=== PATIENT | female | born 1955 | race Caucasian/White ===

== ENCOUNTER 2020-10-15 22:04 | Emergency (ER) | payer OTHER ==
--- OUTSIDE RECORDS SUMMARY | 2020-10-15 22:07 | XMS REPORT | Continuity of Care Document ---
:1955 Author Organization [facility] t Address [address] [place] [address] Care Team Providers Name Role Phone Kacey MCCALLUM, A Primary Care Physician Ese Valdes DO Attending Clinician Problems Condition Condition Condition Status Onset Resolution Last Treating Co mments Source Name Details Category Date Date Treatment Clinician Date Angina at Angina at Disease Active Reyes [facility]ber rest rest 11-19 Methodi 00:00: st 00 Allergies, Adverse Reactions, Alerts Allergy Allergy Status Severity Reaction(s) Onset Inactive Treating Comm ents Source Name Type Date Date Clinician Aspirin Propensi Active Other (See palpitati [place] ty to Comments) 11-19 ons Methodi adverse 00:00: st reaction 00 s to drug Meperidi Propensi Active Anaphylaxis [place] ty to 11-19 Methodi adverse 00:00: st reaction 00 s to drug Family History Family Member Diagnosis Comments Start Date Stop Date Source Natural brother No Known Problems Luis Felipe Holcomb Natural mother No Known Problems Reyes Holcomb Natural sister No Known Problems Reyes Holcomb Social History Social Habit Start Date Stop Date Quantity Comments Source History of Current smoker [facility] tobacco use Tobacco use and 2018-01-09 2018-01-[address] [facility]ist exposure 00:00:00 00:00:00 Alcohol intake 2018-01-09 2018-01-09 Current [facility] 00:00:00 00:00:00 non-drinker of alcohol (finding) Sex Ass[birth year] At [birth year] T[facility] Craig ethodist 00:00:00 00:00:00 Smoking Status Start Date Stop Date Source Former smoker 2018-01-09 00:00:00 2018-01-09 00:00:00 [facility] Medications Ordered Filled Start Stop Current Ordering Indication Dosage Frequency Signature Comments Components Source Medication Medication Date Date Medication? Clinician (SIG) Name Name losartan 2017- Yes 25mg QD Take 25 mg Reyes ston (COZAAR) 25 9-07 by mouth Meth [place] MG tablet 12:03: daily. st 42 acetaminoph 2017- Yes 1{tbl} Q4H Take 1 [place] en-codeine 07 tablet by Meth [place] (TYLENOL 12:03: mouth st WITH 42 every 4 CODEINE #3) (four) 300-30 mg hours as per tablet needed for moderate pain. tiZANidine Yes 4mg Q8H Take 4 mg [place] (ZANAFLEX) 9-07 by mouth Metho di 4 MG tablet 12:03: every 8 st 42 (eight) hours as needed for muscle spasms. Procedures This patient has no known procedures. Plan of Care Planned Activity Planned Date Details Comments Source Future Scheduled 2020-11-28 INFLUENZA VACCINE [place] [facility] 00:00:00 [code = INFLUENZA VACCINE] Future Scheduled 2007-10-31 BREAST CANCER [facility] Test 00:00:00 SCREENING [code = BREAST CANCER SCREENING] Future Scheduled 2007-10-31 COLONOSCOPY SCREENING [place] [facility] Test 00:00:00 [code = COLONOSCOPY SCREENING] Future Scheduled 2007-10-31 SHINGLES VACCINES [place] [facility] 00:00:00 (#1) [code = SHINGLES VACCINES (#1)] Future Scheduled 1978 Screening for [facility] Test 00:00:00 malignant neoplasm of cervix (procedure) [code = 134698376] Future Scheduled 1975-10-31 Hepatitis C screening [place] [facility] Test 00:00:00 (procedure) [code = 620824563] Future Scheduled 1969 COVID-19 VACCINE (1) [facility] Test 00:00:00 [code = COVID-19 VACCINE (1)] Encounters Start End Encounter Admission Attending Care Care Encounter Source Date/Time Date/Time Type Type Clinicians Facility Department ID 2020-04-25 2020-04-25 Emergency Lucio [facility] [id number] 18:15:00 23:38:00 Marquita Childs [id number] [place] [id number] [place] [id number] 2019-03-30 2019-03-30 Emergency E [facility] [id number] 00:33:00 00:33:00 joyce cook Results This patient has no known results.
[2020-10-15] MEDS ORDERED: PROMETHAZINE INJ 25 MG/ML AMP ONE (23:48)
[2020-10-15] MEDS ORDERED: NA CHLORIDE 0.9% 1,000 ML ONE (23:48)
[2020-10-16] MEDS ORDERED: MORPHINE 4 MG/ML SYR ONE (00:30)
[2020-10-16 00:31] LABS: Protime INR 1.02
[2020-10-16 00:33] LABS: Absolute Lymphocytes (CBC) 2.1 K/uL (0.7-4.9); Hematocrit 41.9 % (36.0-45.0); Lymphocytes % 37.4 % (15.3-44.8); MPV 10.5 fL (7.6-11.3); RBC Red Blood Cell Count 4.59 M/uL (3.86-4.86)
[2020-10-16 00:59] LABS: ALT/SGPT 20 U/L (12-78); AST/SGOT 16 U/L (15-37); Albumin 3.6 g/dL (3.4-5.0); Alkaline Phosphatase 102 U/L (45-117); BUN Blood Urea Nitrogen 11 mg/dL (7-18); Bicarbonate 27 mmol/L (21-32); Bilirubin Direct < 0.1 mg/dL (0-0.2); Bilirubin Total 0.3 mg/dL (0.2-1.0); Glucose Level 94 mg/dL (74-106); Magnesium 2.2 mg/dL (1.8-2.4); NT PRO-BNP 24 pg/mL (<125); Potassium 3.4 mmol/L (3.5-5.1); Protein, Total 7.2 g/dL (6.4-8.2); Sodium Level 143 mmol/L (136-145); Troponin (Emerg Dept Use Only) < 0.02 ng/mL (0.0-0.045)
[2020-10-16] MEDS ORDERED: MAGNES/ALUMIN/SIMET 30ML UCUP ONE (01:45)
[2020-10-16] MEDS ORDERED: LIDOCAINE VISCOUS 2% SOLN 15 ML UDC ONE (01:45)
[2020-10-16 03:27] LABS: Urine Blood Negative (Negative); Urine Glucose Negative (Negative); Urine Protein Negative (Negative); Urine Specific Gravity <=1.005 (1.005-1.030); Urine pH 5.5 (5.0-7.0)
--- NOTE | 2020-10-16 03:51 | EDPHYS ---
Physician Documentation [facility] Name: Marya Ching Age: 64 yrs Sex: Female : 1955 Arrival Date: 10/15/2020 Time: 22:31 Bed 19 Private MD: ED Physician Stevan Burkett HPI: 10/16 00:05 This 64 yrs old Female presents to ER via Wheelchair with complaints of mh7 Dizziness. 00:05 The patient presents with dizziness. Onset: The symptoms/episode began/occurred today. mh7 Onset: The symptoms/episode began/occurred this morning. Context: occurred at home, occurred while the patient was sitting, just prior to the episode the patient experienced no apparent symptoms. Modifying factors: The symptoms are alleviated by nothing, the symptoms are aggravated by standing up, changing position. Associated signs and symptoms: Pertinent positives: chest pain, headache, Pertinent negatives: abdominal pain, agitation, ataxia, blurred vision, combativeness, confusion, diaphoresis, focal weakness, head injury, nausea, near-syncope, numbness, palpitations, , seizure, shortness of breath, syncope, tingling, vomiting. Severity of symptoms: At their worst the symptoms were moderate today, in the emergency department the symptoms are unchanged. Patient's baseline: Neuro: alert and fully oriented, Motor: no deficits, Ambulation: walks without assistance, Speech: normal. Historical: - Allergies: 10/15 22:44 Phenobarbital; bb 22:44 Aspirin; bb 22:44 Charadona; bb - PMHx: 22:44 COPD; ascending aortic anuerysm; diverticulosis; colon surgery; bb - PSHx: 22:44 cervical fusion; Hysterectomy; bb - Immunization history:: Adult Immunizations up to date, Client reports receiving the 2nd dose of the Covid vaccine. - Social history:: Smoking status: unknown. ROS: 10/16 00:05 Constitutional: Negative for fever, chills, and weight loss, Eyes: Negative for injury, mh7 pain, redness, and discharge. Neck: Negative for injury, pain, and swelling, Respiratory: Negative for shortness of breath, cough, wheezing, and pleuritic chest pain, Abdomen/GI: Negative for abdominal pain, nausea, vomiting, diarrhea, and constipation, Back: Negative for injury and pain, : Negative for injury, bleeding, discharge, and swelling, MS/Extremity: Negative for injury and deformity, Skin: Negative for injury, rash, and discoloration, Psych: Negative for depression, anxiety, suicide ideation, homicidal ideation, and hallucinations, Allergy/Immunology: Negative for hives, rash, and allergies, Endocrine: Negative for neck swelling, polydipsia, polyuria, polyphagia, and marked weight changes, Hematologic/Lymphatic: Negative for swollen nodes, abnormal bleeding, and unusual bruising. ENT: Positive for sinus pain. Exam: 00:05 Constitutional: This is a well developed, well nourished patient who is awake, alert, mh7 and in no acute distress. 00:05 Eyes: Pupils equal round and reactive to light, extra-ocular motions intact. Lids and lashes normal. Conjunctiva and sclera are non-icteric and not injected. Cornea within normal limits. Periorbital areas with no swelling, redness, or edema. ENT: Nares patent. No nasal discharge, no septal abnormalities noted. Tympanic membranes are normal and external auditory canals are clear. Oropharynx with no redness, swelling, or masses, exudates, or evidence of obstruction, uvula midline. Mucous membranes moist. Neck: Trachea midline, no thyromegaly or masses palpated, and no cervical lymphadenopathy. Supple, full range of motion without nuchal rigidity, or vertebral point tenderness. No Meningismus. Chest/axilla: Normal chest wall appearance and motion. Nontender with no deformity. No lesions are appreciated. Respiratory: Lungs have equal breath sounds bilaterally, clear to auscultation and percussion. No rales, rhonchi or wheezes noted. No increased work of breathing, no retractions or nasal flaring. Abdomen/GI: Soft, non-tender, with normal bowel sounds. No distension or tympany. No guarding or rebound. No evidence of tenderness throughout. Back: No spinal tenderness. No costovertebral tenderness. Full range of motion. Skin: Warm, dry with normal turgor. Normal color with no rashes, no lesions, and no evidence of cellulitis. MS/ Extremity: Pulses equal, no cyanosis. Neurovascular intact. Full, normal range of motion. Neuro: Awake and alert, GCS 15, oriented to person, place, time, and situation. Cranial nerves II-XII grossly intact. Motor strength 5/5 in all extremities. Sensory grossly intact. Cerebellar exam normal. Normal gait. Psych: Awake, alert, with orientation to person, place and time. Behavior, mood, and affect are within normal limits. 00:05 Cardiovascular: Regular rate and rhythm with a normal S1 and S2. No gallops, murmurs, or rubs. Normal PMI, no JVD. No pulse deficits. 00:05 Head/face: Sinus tenderness, that is moderate, is located over the right frontal sinus and left frontal sinus. Vital Signs: 10/15 22:38 BP 116 / 72; Pulse 77; Resp 16 S; Temp 97.5(TE); Pulse Ox 97% on R/A; Weight 92.08 kg bb (R); Height 5 ft. 4 in. (162.56 cm) (R); Pain 5/10; 23:50 BP 118 / 65 Supine; Pulse 68; Resp 16; Pulse Ox 98% ; rr5 23:54 BP 134 / 75 Sitting; Pulse 79; Resp 18; Pulse Ox 97% ; rr5 23:57 BP 140 / 73; Pulse 85; Resp 17; Pulse Ox 97% ; rr5 0619 01:20 BP 146 / 95; Pulse 89; Resp 15; Pulse Ox 98% ; rr5 02:23 BP 133 / 75; Pulse 80; Resp 17; Pulse Ox 98% ; rr5 03:10 BP 124 / 74; Pulse 75; Resp 17; Pulse Ox 96% ; rr5 04:00 BP 136 / 89; Pulse 86; Resp 17; Pulse Ox 98% ; rr5 10/15 22:38 Body Mass Index 34.84 (92.08 kg, 162.56 cm) MDM: 03:48 Differential diagnosis: cardiac arrhythmia, CVA, hypovolemia, idiopathic dizziness, mh7 near-syncope, syncope, TIA, vertigo. Data reviewed: vital signs, nurses notes, EMS record, lab test result(s), cardiac enzymes, CBC, electrolytes, urinalysis, EKG, radiologic studies, CT scan, plain films. Data interpreted: Pulse oximetry: on room air is 98 %. Interpretation: normal. Counseling: I had a detailed discussion with the patient and/or guardian regarding: the historical points, exam findings, and any diagnostic results supporting the discharge/admit diagnosis, lab results, radiology results. Counseling: I had a detailed discussion with the patient and/or guardian regarding: the need for further work-up and treatment in the hospital. Response to treatment: the patient's symptoms have mildly improved after treatment. 03:50 Patient medically screened. [facility] 10/15 23:21 Order name: Basic Metabolic Panel [facility] 10/15 23:21 Order name: CBC with Diff; Complete Time: 01:09 [facility] 10/15 23:21 Order name: LFT's; Complete Time: 01:09 [facility] 10/15 23:21 Order name: Magnesium; Complete Time: 01: [facility] 10/15 23:21 Order name: NT PRO-BNP; Complete Time: 01:09 [facility] 10/15 23:21 Order name: PT-INR; Complete Time: 01: [facility] 10/15 23:21 Order name: Troponin (emerg Dept Use Only); Complete Time: 01:09 [facility] 10/15 23:21 Order name: XRAY Chest (1 view) [facility] 10/15 23:22 Order name: CT Head Brain wo Cont [facility] 10/15 23:22 Order name: Basic Metabolic Panel; Complete Time: 01:09 [facility] 10/16 01:23 Order name: CT Chest For PE Angio [facility] 10/16 01:23 Order name: CT Abd/Pelvis - IV Contrast Only [facility] 10/16 03:27 Order name: Urine Dipstick-Ancillary; Complete Time: 03:29 [facility] 10/15 23:21 Order name: EKG; Complete Time: 23:22 [facility] 10/15 23:21 Order name: Cardiac monitoring; Complete Time: 00:15 [facility] 10/15 23:21 Order name: EKG - Nurse/Tech; Complete Time: 00:15 [facility] 10/15 23:22 Order name: IV Saline Lock; Complete Time: 00:15 [facility] 10/15 23:22 Order name: Labs collected and sent; Complete Time: 00:15 [facility] 10/15 23:22 Order name: O2 Per Protocol; Complete Time: 00:15 [facility] 10/15 23:22 Order name: O2 Sat Monitoring; Complete Time: 00:15 [facility] 10/15 23:22 Order name: Orthostatics; Complete Time: 00:15 7 Administered Medications: 00:10 Drug: NS 0.9% 1000 ml Route: IV; Rate: 1000 ml; Site: right forearm; rr5 01:15 Follow up: Response: No adverse reaction; IV Status: Completed infusion; IV Intake: rr5 1000ml 00:14 Drug: morphine 4 mg {Note: rass 0.} Route: IVP; Site: right forearm; rr5 00:15 Follow up: Response: No adverse reaction; RASS: Alert and Calm (0) rr5 00:15 Drug: Phenergan (promethazine) 12.5 mg Route: IVP; Site: right forearm; rr5 00:15 Follow up: Response: No adverse reaction rr5 01:31 Drug: GI Cocktail without - (Maalox Suspension 30 ml, Lidocaine Liquid 2 % 15 rr5 ml) Route: PO; 02:30 Follow up: Response: No adverse reaction rr5 Disposition: 10/16/20 03:50 Patient has left against medical advice. Impression: Dizziness and giddiness, Chest pain, unspecified. - Patients states they are going to Home. - Condition is Stable. - Discharge Instructions: Dizziness, Nonspecific Chest Pain, [id number]. Follow up: Private Physician; When: 1 - 2 days; Reason: Worsening of condition, Recheck today's complaints, Continuance of care, Re-evaluation by your physician. Follow up: Juanito Blanc MD; When: 1 - 2 days; Reason: Worsening of condition, Recheck today's complaints. - Problem is new. - Symptoms have improved. Signatures: Dispatcher [employer] EDMS Staci Dinero RN RN bb Ezio Cohen RN RN rr5 Stevan Burkett MD MD 7 Corrections: (The following items were deleted from the chart) 04:20 03:50 10/16/2020 03:50 Patients has left against medical advice. Impression: Dizziness rr5 and giddiness; Chest pain, unspecified. Patient states they are going to Home. Condition is Stable. Follow up: Private Physician; When: 1 - 2 days; Reason: Worsening of condition, Recheck today's complaints, Continuance of care, Re-evaluation by your physician. Follow up: Juanito Blanc; When: 1 - 2 days; Reason: Worsening of condition, Recheck today's complaints. Problem is new. Symptoms have improved. 7
--- NOTE | 2020-10-16 03:51 | ER ---
Nurse's Notes [facility] Name: Marya Ching Age: 64 yrs Sex: Female : 1955 Arrival Date: 10/15/2020 Time: 22:31 Bed 19 Private MD: Diagnosis: Dizziness and giddiness;Chest pain, unspecified Presentation: 10/15 22:38 Chief complaint: Patient states: she has been feeling dizzy for a couple of days but bb the symptoms worsened tonight and she is unable to walk she has also had a headache. Coronavirus screen: At this time, the client does not indicate any symptoms associated with coronavirus-19. Ebola Screen: No symptoms or risks identified at this time. Initial Sepsis Screen: Does the patient meet any 2 criteria? No. Patient's initial sepsis screen is negative. Does the patient have a suspected source of infection? No. Patient's initial sepsis screen is negative. Risk Assessment: Do you want to hurt yourself or someone else? Patient reports no desire to harm self or others. Onset of symptoms was October 13, 2020. 22:38 Method Of Arrival: Wheelchair bb 22:38 Acuity: BERNARDO 3 bb Historical: - Allergies: 22:44 Phenobarbital; bb 22:44 Aspirin; bb 22:44 Charadona; bb - PMHx: 22:44 COPD; ascending aortic anuerysm; diverticulosis; colon surgery; bb - PSHx: 22:44 cervical fusion; Hysterectomy; bb - Immunization history:: Adult Immunizations up to date, Client reports receiving the 2nd dose of the Covid vaccine. - Social history:: Smoking status: unknown. Screenin:30 Abuse screen: Denies threats or abuse. Denies injuries from another. Nutritional rr5 screening: No deficits noted. Tuberculosis screening: No symptoms or risk factors identified. Fall Risk IV access (20 points). Total Tompkins Fall Scale indicates No Risk (0-24 pts). Assessment: 23:00 General: Appears in no apparent distress. uncomfortable, Behavior is calm, cooperative, rr5 appropriate for age. Pain: Complains of pain in left frontal sinus and right frontal sinus. Neuro: Level of Consciousness is awake, alert, obeys commands, Oriented to person, place, time, Reports dizziness, headache. 23:00 Cardiovascular: Capillary refill < 3 seconds Patient's skin is warm and dry. rr5 Respiratory: Airway is patent Respiratory effort is even, unlabored, Respiratory pattern is regular, symmetrical. GI: No signs and/or symptoms were reported involving the gastrointestinal system. : No signs and/or symptoms were reported regarding the genitourinary system. EENT: No signs and/or symptoms were reported regarding the EENT system. Derm: Skin is intact, is healthy with good turgor, Skin temperature is warm. Musculoskeletal: Capillary refill < 3 seconds. 10/16 00:16 Reassessment: Patient appears in no apparent distress at this time. refused for covid rr5 test. 00:30 Reassessment: Patient appears in no apparent distress at this time. complaints of rr5 chest/ abdominal pain started just now, ED provider aware with order made and carriedout. 02:20 Reassessment: Patient appears in no apparent distress at this time. Patient is alert, rr5 oriented x 3, equal unlabored respirations, skin warm/dry/pink. back form CTscan. 04:00 Reassessment: Patient appears in no apparent distress at this time. Patient is alert, rr5 oriented x 3, equal unlabored respirations, skin warm/dry/pink. reassess by ED provider advised for admission but opted to go home, AMA for signed, discharge instruction given and explained without complaints made. Vital Signs: 10/15 22:38 BP 116 / 72; Pulse 77; Resp 16 S; Temp 97.5(TE); Pulse Ox 97% on R/A; Weight 92.08 kg bb (R); Height 5 ft. 4 in. (162.56 cm) (R); Pain 5/10; 23:50 BP 118 / 65 Supine; Pulse 68; Resp 16; Pulse Ox 98% ; rr5 23:54 BP 134 / 75 Sitting; Pulse 79; Resp 18; Pulse Ox 97% ; rr5 23:57 BP 140 / 73; Pulse 85; Resp 17; Pulse Ox 97% ; rr5 10/16 01:20 BP 146 / 95; Pulse 89; Resp 15; Pulse Ox 98% ; rr5 02:23 BP 133 / 75; Pulse 80; Resp 17; Pulse Ox 98% ; rr5 03:10 BP 124 / 74; Pulse 75; Resp 17; Pulse Ox 96% ; rr5 04:00 BP 136 / 89; Pulse 86; Resp 17; Pulse Ox 98% ; rr5 10/15 22:38 Body Mass Index 34.84 (92.08 kg, 162.56 cm) bb ED Course: 10/15 22:31 Patient arrived in ED. am4 22:41 Triage completed. bb 22:44 Arm band placed on Patient placed in an exam room, on a stretcher, on pulse oximetry. bb Family accompanied patient. 22:55 Stevan Burkett MD is Attending Physician. [facility] 22:59 Ezio Cohen RN is Primary Nurse. rr5 23:30 Patient has correct armband on for positive identification. Bed in low position. Call rr5 light in reach. Side rails up X2. property assessment monitor on. Pulse ox on. NIBP on. 23:51 XRAY Chest (1 view) In Process Unspecified. EDMS 23:59 CT Head Brain wo Cont In Process Unspecified. EDMS 10/16 00:00 Inserted saline lock: 20 gauge in right forearm, using aseptic technique. Blood rr5 collected. 02:15 Inserted saline lock: 20 gauge in left antecubital area, using aseptic technique. rr5 02:22 CT Chest For PE Angio In Process Unspecified. EDMS 02:22 CT Abd/Pelvis - IV Contrast Only In Process Unspecified. EDMS 03:49 Juanito Blanc MD is Referral Physician. [facility] 04:18 No provider procedures requiring assistance completed. IV discontinued, intact, rr5 bleeding controlled, No redness/swelling at site. Pressure dressing applied. Administered Medications: 00:10 Drug: NS 0.9% 1000 ml Route: IV; Rate: 1000 ml; Site: right forearm; rr5 01:15 Follow up: Response: No adverse reaction; IV Status: Completed infusion; IV Intake: rr5 1000ml 00:14 Drug: morphine 4 mg {Note: rass 0.} Route: IVP; Site: right forearm; rr5 00:15 Follow up: Response: No adverse reaction; RASS: Alert and Calm (0) rr5 00:15 Drug: Phenergan (promethazine) 12.5 mg Route: IVP; Site: right forearm; rr5 00:15 Follow up: Response: No adverse reaction rr5 01:31 Drug: GI Cocktail without - (Maalox Suspension 30 ml, Lidocaine Liquid 2 % 15 rr5 ml) Route: PO; 02:30 Follow up: Response: No adverse reaction rr5 Intake: 01:15 IV: 1000ml; Total: 1000ml. rr5 Outcome: 04:18 AMA AMA form signed rr5 04:18 Condition: stable 04:18 Discharge instructions given to patient, family, Instructed on discharge instructions, follow up and referral plans. Demonstrated understanding of instructions, follow-up care. 04:20 Patient left the ED. rr5 Signatures: Dispatcher [employer] EDStaci St RN RN Ezio Weinberg RN RN rr5 Stevan Burkett MD MD 7 Kerri Florez am4
[2020-10-16 04:30] VITALS: TEMP 97.5
[2020-10-16 04:41] VITALS: BP 136/89; O2SAT 98
--- NOTE | 2020-10-16 09:44 | EKG ---
Test Date: 2020-10-15 Test Time: 23:36:51 Real Estate Agent/Broker: RR MEASUREMENT RESULTS: Intervals: Rate: 71 NE: 150 QRSD: 138 QT: 444 QTc: 482 [place]: P: 44 NE: 150 QRS: -39 T: 36 INTERPRETIVE STATEMENTS: Normal sinus rhythm Left axis deviation Right bundle branch block Voltage criteria for left ventricular hypertrophy Abnormal ECG No previous ECG available for comparison Electronically Signed On 10-16-20 09:43:31 CDT by Juanito Blanc
--- NOTE | 2020-10-17 20:45 | RAD REPORT ---
EXAM DESCRIPTION: Jose Single View10/15/2020 11:51 pm CLINICAL HISTORY: The patient is 64 years old and is Female; dizziness TECHNIQUE: Frontal view of the chest. COMPARISON: No relevant prior studies available. FINDINGS: Lungs: Unremarkable. No consolidation. Pleural space: Unremarkable. No pneumothorax. Heart: Unremarkable. Mediastinum: Unremarkable. Bones/joints: Unremarkable. IMPRESSION: No acute findings in the chest. Electronically signed by: José Miguel Orellana MD 10/16/2020 1:26 AM CDT Due to temporary technical issues with the PACS/Fluency reporting system, reports are being signed by the in house radiologists without review as a courtesy to insure prompt reporting. The interpreting radiologist is fully responsible for the content of the report.
--- NOTE | 2020-10-17 21:57 | RAD REPORT ---
EXAM DESCRIPTION: CT - Abdomen Pelvis W Contrast - 10/16/2020 6:21 am CLINICAL HISTORY: The patient is 64 years old and is Female; ABD PAIN TECHNIQUE: Axial computed tomography images of the abdomen and pelvis with intravenous contrast. S agittal and coronal reformatted images were created and reviewed. This CT exam was performed using one or more of the following dose reduction techniques: automated exposure control, adjustment of t he mA and/or kV according to patient size, and/or use of iterative reconstruction technique. COMPARISON: No relevant prior studies available. FINDINGS: Lung bases: Unremarkable. No mass. No consolidation. Mediastinum: Small hiatal hernia. ABDOMEN: Liver: Unremarkable. No mass. Gallbladder and bile ducts: Unremarkable. No calcified stones. No ductal dilation. Pancreas: Unremarkable. No mass. No ductal dilation. Spleen: Unremarkable. No splenomegaly. Adrenals: Unremarkable. No mass. Kidneys and ureters: Unremarkable. No solid mass. No hydronephrosis. Stomach and bowel: Unremarkable. No obstruction. No mucosal thickening. PELVIS: Appendix: No findings to suggest acute appendicitis. Bladder: Unremarkable. No mass. Reproductive: Uterus is not seen. ABDOMEN and PELVIS: Intraperitoneal space: Unremarkable. No free air. No significant fluid collection. Bones/joints: No acute fracture. No dislocation. Soft tissues: Unremarkable. Vasculature: Scattered atherosclerotic vascular calcifications. No abdominal aortic aneurysm. Lymph nodes: Unremarkable. No enlarged lymph nodes. IMPRESSION: No acute findings in the abdomen or pelvis. Electronically signed by: José Miguel Orellana MD 10/16/2020 2:55 AM CDT Due to temporary technical issues with the PACS/Fluency reporting system, reports are being signed by the in house radiologists without review as a courtesy to insure prompt reporting. The interpreting radiologist is fully responsible for the content of the report.
--- NOTE | 2020-10-17 22:00 | RAD REPORT ---
EXAM DESCRIPTION: CT - Head Brain Wo Cont - 10/16/2020 6:24 am CLINICAL HISTORY: The patient is 64 years old and is Female; Dizziness;Headache TECHNIQUE: Axial computed tomography images of the head/brain without intravenous contrast. Sagitt al and coronal reformatted images were created and reviewed. This CT exam was performed using one o r more of the following dose reduction techniques: automated exposure control, adjustment of the mA and/or kV according to patient size, and/or use of iterative reconstruction technique. COMPARISON: No relevant prior studies available. FINDINGS: Brain: Unremarkable. No hemorrhage. No significant white matter disease. No edema. Ventricles: Unremarkable. No ventriculomegaly. Bones/joints: Unremarkable. No acute fracture. Soft tissues: Unremarkable. Sinuses: Unremarkable as visualized. Mastoid air cells: Unremarkable as visualized. No mastoid effusion. IMPRESSION: No acute intracranial abnormality. Electronically signed by: José Miguel Orellana MD 10/16/2020 12:18 AM CDT Due to temporary technical issues with the PACS/Fluency reporting system, reports are being signed by the in house radiologists without review as a courtesy to insure prompt reporting. The interpreting radiologist is fully responsible for the content of the report.
--- NOTE | 2020-10-17 22:02 | RAD REPORT ---
EXAM DESCRIPTION: CT - Chest For Pe Angio - 10/16/2020 6:20 am CLINICAL HISTORY: CHEST PAIN TECHNIQUE: Contiguous axial images obtained through the chest during angiographic phase following th e uneventful administration of IV contrast. Sagittal and coronal reformatted images were provided. VT P reformatted images were provided. This exam was performed according to our departmental dose-optimization program, which includes autom ated exposure control, adjustment of the mA and/or kV according to patient size and/or use of iterati ve reconstruction technique. COMPARISON: No prior exams provided for comparison. FINDINGS: Diagnostic quality: There is good opacification of the pulmonary arterial tree. Motion art ifact degrades image quality and limits evaluation of segmental and subsegmental vessels. Lungs: Mild emphysema with an upper lobe predominance. Dependent bilateral upper and lower lobe groun dglass opacities. Left lower lobe and lingular subsegmental atelectasis/pleural parenchymal scar. 5 m m right middle lobe. Fissural nodule (series 401 image 52 and series 405 image 32). 6 mm right lower lobe nodule (series 401 image 116). Airways are patent. Pleura: No effusion. No pneumothorax. Heart and pericardium: The heart is mildly enlarged. No pericardial effusion. Mediastinum and michi: No pathologically enlarged lymph nodes. Small hiatal hernia. Lower neck and chest wall: Surgical clips in the anterior lower neck, some surrounding the right lobe of the thyroid. Vessels: No pulmonary arterial filling defects. Moderate atherosclerotic disease. No thoracic aortic aneurysm. Upper abdomen: Unremarkable Bones: Mild multilevel spondylosis. No acute fracture. IMPRESSION: 1. Motion artifact degrades image quality and limits evaluation of segmental and subsegmental vesse ls. No central pulmonary embolic disease. 2. Dependent bilateral upper and lower lobe groundglass opacities (atelectasis and/or infiltrate). 3. Multiple pulmonary nodules. Most severe: 6.0 mm solid pulmonary nodule. Recommend a non-contrast Chest CT at 6-12 months, then another non-contrast Chest CT at 18-24 months. These guidelines do not apply to immunocompromised patients and patients with cancer. Follow up in patients with significant comorbidities as clinically warranted. For lung cancer screening, adhere to Lung-RADS guidelines. Richa chacon: Radiology. 2017; 284(1):228-43. 4. Other findings as above. Electronically signed by: Lorena Brennan MD 10/16/2020 3:04 AM CDT Due to temporary technical issues with the PACS/Fluency reporting system, reports are being signed by the in house radiologists without review as a courtesy to insure prompt reporting. The interpreting radiologist is fully responsible for the content of the report.
== END 2020-10-16 04:20 | disposition left against medical advice (07) ==
LOC: ER 22:04
DX: R07.9 Chest pain, unspecified (principal); J44.9 Chronic obstructive pulmonary disease, unspecified; Z88.5 Allergy status to narcotic agent; Z88.8 Allergy status to other drugs, medicaments and biological substances
CPT/HCPCS: 93005; 85025; 80048; 36415; 83735; 85610; 80076; 81003; 84484; 83880; 70450; 71275; 74177; 71045; Q9967; J2550; J7030; 96361; 96374; 96375; 99284

== ENCOUNTER 2020-10-25 19:24 | Inpatient (IN) | payer OTHER ==
--- OUTSIDE RECORDS SUMMARY | 2020-10-25 19:28 | XMS REPORT | Continuity of Care Document ---
:1955 Author Organization [facility] t Address [address] [place] [address] Care Team Providers Name Role Phone Kacey [...] Clinician Aspirin Propensi Active Other (See palpitati [place] ty to Comments) 11-19 ons Methodi adverse [...] Quantity Comments Source History of Current smoker [facility] thodist tobacco use Tobacco use and 2018-01-09 2018-01-09 Never used [facility]ist exposure 00:00:00 00:00:00 Alcohol intake 2018-01-09 2018-01-09 Current [facility] thodist 00:00:00 00:00:00 non-drinker of alcohol (finding) Sex Ass[birth year] At [birth year] Torey Criag ethodist 00:00:00 00:00:00 Smoking Status Start Date [...] Future Scheduled 2020-11-28 INFLUENZA VACCINE [place] [facility] 00:00:00 [code = INFLUENZA VACCINE] Future Scheduled 2007-10-31 BREAST CANCER [facility] Test 00:00:00 SCREENING [code = BREAST CANCER SCREENING] Future Scheduled 2007-10-31 COLONOSCOPY SCREENING [place] [facility] 00:00:00 [code = COLONOSCOPY SCREENING] Future Scheduled 2007-10-31 SHINGLES VACCINES [place] [facility] 00:00:00 (#1) [code = SHINGLES VACCINES (#1)] Future Scheduled 1978 Screening for [facility] Test 00:00:00 malignant neoplasm of cervix (procedure) [code = 990343135] Future Scheduled 1975-10-31 Hepatitis C screening [place] [facility] 00:00:00 (procedure) [code = 216615145] Future Scheduled 1969 COVID-19 VACCINE (1) [facility] 00:00:00 [code = COVID-19 VACCINE (1)] Encounters Start End Encounter Admission Attending Care Care Encounter Source Date/Time Date/Time Type Type Clinicians Facility Department ID 2020-04-25 2020-04-25 Emergency Lucio [facility] [id number] 18:15:00 23:38:00 Marquita Childs [id number] [place] [id number] [place] [id number] 2019-03-30 2019-03-30 Emergency [facility] [id number] 00:33:00 00:33:00 joyce cook Results This patient has no known results.
[2020-10-25] MEDS ORDERED: NA CHLORIDE 0.9% 1,000 ML ONE ×2 (21:47→21:48)
[2020-10-25 22:55] LABS: ALT/SGPT 24 U/L (12-78); AST/SGOT 20 U/L (15-37); Albumin 3.7 g/dL (3.4-5.0); Alkaline Phosphatase 100 U/L (45-117); BUN Blood Urea Nitrogen 13 mg/dL (7-18); Bicarbonate 28 mmol/L (21-32); Bilirubin Direct < 0.1 mg/dL (0-0.2); Bilirubin Total 0.3 mg/dL (0.2-1.0); Glucose Level 84 mg/dL (74-106); Magnesium 2.2 mg/dL (1.8-2.4); NT PRO-BNP 24 pg/mL (<125); Potassium 4.1 mmol/L (3.5-5.1); Protein, Total 6.9 g/dL (6.4-8.2); Sodium Level 142 mmol/L (136-145); Troponin (Emerg Dept Use Only) < 0.02 ng/mL (0.0-0.045)
[2020-10-25 23:00] LABS: Absolute Lymphocytes (CBC) 2.2 K/uL (0.7-4.9); Hematocrit 40.6 % (36.0-45.0); Lymphocytes % 33.6 % (15.3-44.8); MPV 10.5 fL (7.6-11.3); RBC Red Blood Cell Count 4.48 M/uL (3.86-4.86)
[2020-10-25] MEDS ORDERED: MORPHINE 4 MG/ML SYR ONE (23:32)
[2020-10-25] MEDS ORDERED: ONDANSETRON 4 MG/2 ML VIAL ONE (23:32)
--- NOTE | 2020-10-25 23:58 | ER ---
Nurse's Notes [facility] Name: Marya Ching Age: 64 yrs Sex: Female : 1955 Arrival Date: 10/25/2020 Time: 20:08 Bed 5 Private MD: Diagnosis: Dizziness. Ataxia. Slurred speech Presentation: 10/25 20:19 Chief complaint: Patient states: Dr. Gann sent over pt to possibly be admitted due to em worsening symptoms of ataxia, symptoms have been there for about 1.5 weeks, also reports neck pain that started a few ago as well, denies N/V. Coronavirus screen: Client denies travel out of the [place] in the last 14 days. Ebola Screen: Patient negative for fever greater than or equal to 101.5 degrees Fahrenheit, and additional compatible Ebola Virus Disease symptoms Patient denies exposure to infectious person. Patient denies travel to an Ebola-affected area in the 21 days before illness onset. No symptoms or risks identified at this time. Initial Sepsis Screen: Does the patient meet any 2 criteria? No. Patient's initial sepsis screen is negative. Does the patient have a suspected source of infection? No. Patient's initial sepsis screen is negative. Risk Assessment: Do you want to hurt yourself or someone else? Patient reports no desire to harm self or others. Onset of symptoms was October 25, 2020. 20:19 Method Of Arrival: Wheelchair em 20:19 Acuity: BERNARDO 3 em Historical: - Allergies: 20:22 Aspirin; em 20:22 Charadona; em 20:22 Phenobarbital; em - PMHx: 20:22 ascending aortic anuerysm; colon surgery; COPD; diverticulosis; em - PSHx: 20:22 cervical fusion; Hysterectomy; em - Immunization history:: Adult Immunizations Client reports receiving the 2nd dose of the Covid vaccine. - Social history:: Smoking status: Patient denies any tobacco usage or history of. Screenin:45 Abuse screen: Denies threats or abuse. Nutritional screening: No deficits noted. ea Tuberculosis screening: No symptoms or risk factors identified. Fall Risk None identified. Assessment: 21:45 General: Appears in no apparent distress. Behavior is calm, cooperative, appropriate ea for age. Pain: Complains of pain in back. Neuro: Level of Consciousness is awake, alert, obeys commands, Oriented to person, place, time. Cardiovascular: Patient's skin is warm and dry. Respiratory: Airway is patent Respiratory effort is even, unlabored, Respiratory pattern is regular, symmetrical. Derm: Skin is pink, warm \T\ dry. 22:16 Reassessment: Patient appears in no apparent distress at this time. Patient and/or ad5 family updated on plan of care and expected duration. Pain level reassessed. Pt noted to be hard stick, RN x 2 attempt. 22g diffusix est to L forearm, serum labs drawn and sent to lab. Flushes without difficulty. 23:09 Reassessment: Pt reports continued headache, provider aware. Awaiting further orders. ad5 Pt repositioned for comfort in stretcher. Bed low and locked, bedrails x 2, call light within reach. Will continue to monitor. 10/26 00:19 Reassessment: Patient appears in no apparent distress at this time. No changes from ad5 previously documented assessment. Patient and/or family updated on plan of care and expected duration. Pain level reassessed. Vital Signs: 10/25 20:19 BP 131 / 74; Pulse 87; Resp 16; Temp 97.8; Pulse Ox 99% on R/A; Weight 92.53 kg; Height em 5 ft. 4 in. (162.56 cm); Pain 6/10; 23:09 BP 133 / 82; Pulse 81; Resp 18 S; Pulse Ox 95% ; ad5 10/26 00:19 BP 142 / 73; Pulse 73; Resp 18 S; Pulse Ox 96% on R/A; ad5 10/25 20:19 Body Mass Index 35.02 (92.53 kg, 162.56 cm) em ED Course: 10/25 20:08 Patient arrived in ED. cf2 20:22 Triage completed. em 20:22 Arm band placed on. em 20:48 Juan Cabrera is Primary Nurse. ad5 20:57 Og Lewis MD is Attending Physician. pkl 21:23 NT PRO-BNP Sent. pkl 21:45 Patient has correct armband on for positive identification. Bed in low position. Call ea light in reach. Side rails up X2. 21:48 XRAY Chest (1 view) In Process Unspecified. EDMS 22:24 CT Head C Spine In Process Unspecified. EDMS 23:57 Percy Acosta MD is Hospitalizing Provider. pkl 10/26 00:20 No provider procedures requiring assistance completed. Patient admitted, IV remains in ea place. Administered Medications: 10/25 22:39 Drug: NS 0.9% 1000 ml Route: IV; Rate: 100 ml/hr; Site: right forearm; ea 23:16 Drug: Zofran (Ondansetron) 4 mg Route: IVP; Site: left forearm; ad5 23:51 Follow up: Response: No adverse reaction ad5 23:17 Drug: morphine 4 mg {Note: RASS 0.} Route: IVP; Site: left forearm; ad5 23:51 Follow up: Response: No adverse reaction; RASS: Alert and Calm (0) ad5 Outcome: 23:58 Decision to Hospitalize by Provider. pk 10/26 00:19 Instructed on the need for admit, Demonstrated understanding of instructions. ea 00:34 Admitted to Med/surg accompanied by nurse, via wheelchair, with chart. ea 00:34 Condition: stable 00:34 Patient left the ED. ea Signatures: Dispatcher [employer] Og Motley MD MD pkNakul Silvestre, RN RN Evon Allen RN RN Da Edgar cfJuan Ramirez ad5
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
[2020-10-26] MEDS ORDERED: ONDANSETRON 4 MG/2 ML VIAL IV PRN (01:55)
[2020-10-26 03:34] VITALS: BMI 35.0
--- NOTE | 2020-10-26 04:45 | P.HP ---
Certification for Inpatient Patient admitted to: Observation With expected LOS: <2 Midnights Patient will require the following post-hospital care: None Practitioner: I am a practitioner with admitting privileges, knowledge of patient current condition, hospital course, and medical plan of care. Services: Services provided to patient in accordance with Admission requirements found in Title 42 Section 412.3 of the Code of Federal Regulations <Hood Coronel - Last Filed: 10/26/20 04:39> Patient History Date of Service: 10/26/20 Primary Care Provider: Celia Reason for admission: ataxia History of Present Illness: Ms. Ching is a 64 yo F with COPD here today for 1.5 weeks of ataxic gait and dizziness with ambulation. She says today she started to take a few steps, became very dizzy, and almost fell. She said a few days ago, her son told her that her speech was slurred. She says she has to focus to enunciate her words. She reports blurry vision. Denies nausea, vomiting, falls, and sensory disturbances. - Past Medical/Surgical History Has patient received pneumonia vaccine in the past: No Diabetic: No -: ASCENDING AORTIC ANEURYSM -: COPD -: DIVERTICULOSIS -: HYPERPARATHYROIDISM-RESOLVED THRU SX -: CONSTIPATION -: COLON SX -: HYSTERECTOMY -: CERVICAL FUSION -: PARATHYROID SX - Family History Parents Notes: no medical condition per pt Mother -: Lung disease Notes: mother of COVID pneumonia - Social History Smoking Status: Former smoker Alcohol use: No CD- Drugs: No Caffeine use: No Place of Residence: Home <Hood Coronel - Last Filed: 10/26/20 04:39> Date of Service: 10/26/20 <Percy Acosta - Last Filed: 11/01/20 04:52> Allergies aspirin Allergy (Verified 10/26/20 01:58) palpitations phenobarbital Allergy (Verified 10/26/20 01:28) unknown meperidine [From Demerol] Adverse Reaction (Verified 10/26/20 01:58) severe hypotension; coded charadona Allergy (Uncoded 10/26/20 01:57) unknown Home Medications: Albuterol 1 aero IH SEECOM PRN 10/26/20 Docusate [Colace Cap*] 1 cap PO DAILYPRN PRN 10/26/20 Fluticasone/Umeclidin/Vilanter [Trelegy Ellipta 100-62.5-25] 1 puff IH DAILY 10/26/20 Atorvastatin Calcium [Lipitor*] 10 mg PO BEDTIME #30 tab 10/29/20 Baclofen [Lioresal*] 10 mg PO DAILY #30 tab 10/29/20 Cyanocobalamin/Cobamamide [Vitamin B-12 5,000 Mcg Tab Sl] 1 each SL DAILY #30 tab.subl 10/29/20 Docusate [Colace Cap*] 100 mg PO BID #30 cap 10/29/20 Topiramate [Topamax*] 25 mg PO BID #60 tab 10/29/20 predniSONE [Prednisone*] 20 mg PO DAILY #10 tab 10/29/20 Review of Systems 10-point ROS is otherwise unremarkable Neurological: Incoordination, Change in Speech, As per HPI <Hood Coronel S - Last Filed: 10/26/20 04:39> Physical Examination - Vital Signs Temperature: 97.8 F Blood Pressure: 142/73 Pulse: 73 Respirations: 18 - Physical Exam General: Alert, In no apparent distress HEENT: Atraumatic, PERRLA, Mucous membr. moist/pink, EOMI, Sclerae nonicteric Neck: Supple, 2+ carotid pulse no bruit, No LAD, Without JVD or thyroid abnormality Respiratory: Clear to auscultation bilaterally, Normal air movement Cardiovascular: Regular rate/rhythm, Normal S1 S2 Gastrointestinal: Normal bowel sounds, No tenderness Musculoskeletal: No tenderness Integumentary: No rashes Neurological: Normal speech, Normal strength at 5/5 x4 extr, Normal tone, Sensation intact, Cranial nerves 3-12 intact, Normal affect, Other (impaired finger to nose test on right side ), Abnormal gait Lymphatics: No axilla or inguinal lymphadenopathy - Studies Laboratory Data (last 24 hrs) 10/25/20 22:10: WBC 6.70 D, Hgb 13.8, Hct 40.6, Plt Count 207 10/25/20 21:43: Sodium 142, Potassium 4.1, BUN 13, Creatinine 0.57, Glucose 84, Magnesium 2.2, Total Bilirubin 0.3, AST 20, ALT 24, Alkaline Phosphatase 100 <Hood Coronel S - Last Filed: 10/26/20 04:39> Assessment and Plan - Problems (Diagnosis) (1) COPD (chronic obstructive pulmonary disease) Status: Chronic Qualifiers: COPD type: unspecified COPD Qualified Code(s): J44.9 - Chronic obstructive pulmonary disease, unspecified (2) Ataxic gait Status: Acute (3) Dizziness Status: Acute - Plan neurology consulted MRI ordered for the AM PT consulted, dietitian consulted O2, breathing treatments as needed lipid panel pending reconcile home medications Discharge Plan: Home Plan to discharge in: 24 Hours - Advance Directives Does patient have a Living Will: Yes Does patient have a Durable POA for Healthcare: Yes - Code Status/Comfort Care Code Status Assessed: Yes (full code ) Critical Care: No Time Spent Managing Pts Care (In Minutes): 70 <Hood Coronel - Last Filed: 10/26/20 04:39> - Problems (Diagnosis) (1) Ataxic gait Status: Acute (2) Dizziness Status: Acute (3) COPD (chronic obstructive pulmonary disease) Status: Chronic Qualifiers: COPD type: unspecified COPD Qualified Code(s): J44.9 - Chronic obstructive pulmonary disease, unspecified <Percy Acosta - Last Filed: 11/01/20 04:52> Date of Service: 10/26/20 Subjective Chart reviewed. Agree with plan of care as mentioned above Review of Systems 10-point ROS is otherwise unremarkable Physical Examination - Vital Signs Reviewed - Physical Exam General: Alert, In no apparent distress, Oriented x3 Respiratory: Clear to auscultation bilaterally, Normal air movement Cardiovascular: Regular rate/rhythm, Normal S1 S2, No murmurs Gastrointestinal: Normal bowel sounds, Soft and benign, Non-distended, No tenderness Musculoskeletal: No clubbing, No swelling, No tenderness Neurological: sensation diminished. Proprioception diminished. Assessment & Plan - Problems (Diagnosis) (1) Ataxic gait Status: Acute (2) Dizziness Status: Acute (3) COPD (chronic obstructive pulmonary disease) Status: Chronic Qualifiers: COPD type: unspecified COPD Qualified Code(s): J44.9 - Chronic obstructive pulmonary disease, unspecified - Plan Plan: 1. Continue B12 supplementation 2. MRI of the C-spine and brain 3. Gentle hydration 4. Physical therapy evaluation 5. Neurology consultation 6. GI and DVT prophylaxis Discharge Plan: Home Plan to discharge in: Greater than 2 days - Advance Directives Does patient have a Living Will: Yes Does patient have a Durable POA for Healthcare: Yes - Code Status/Comfort Care Code Status Assessed: Yes Code Status: Full Code Critical Care: No Time Spent Managing PTS Care (In Minutes): 55 <Percy Acosta - Last Filed: 11/01/20 04:52>
[2020-10-26 05:26] LABS: Urine Appearance CLEAR (Clear); Urine Bilirubin NEGATIVE (Negative); Urine Blood NEGATIVE (Negative); Urine Color YELLOW (Yellow); Urine Glucose NEGATIVE (Negative); Urine Protein NEGATIVE (Negative); Urine Specific Gravity 1.025 (1.005-1.030); Urine Urobilinogen 0.2 mg/dL (0.2-1.0); Urine pH 5.5 (5.0-7.0)
[2020-10-26 05:28] LABS: Urine Microscopic Reflex NO UMIC
[2020-10-26 05:44] LABS: Absolute Lymphocytes (CBC) 2.3 K/uL (0.7-4.9); Basophils % 0.9 % (0-1.3); Hematocrit 39.3 % (36.0-45.0); Lymphocytes % 35.9 % (15.3-44.8); MPV 10.4 fL (7.6-11.3); RBC Red Blood Cell Count 4.29 M/uL (3.86-4.86)
[2020-10-26 05:53] LABS: Protime INR 1.03
[2020-10-26 06:04] LABS: ALT/SGPT 20 U/L (12-78); AST/SGOT 9 U/L (15-37); Albumin 3.4 g/dL (3.4-5.0); Alkaline Phosphatase 84 U/L (45-117); BUN Blood Urea Nitrogen 14 mg/dL (7-18); Bicarbonate 27 mmol/L (21-32); Bilirubin Total 0.3 mg/dL (0.2-1.0); Glucose Level 94 mg/dL (74-106); HDL Cholesterol 54 mg/dL (40-60); LDL Cholesterol, Calculated 71 (<130); Magnesium 2.2 mg/dL (1.8-2.4); Phosphorus 3.2 mg/dL (2.5-4.9); Potassium 3.8 mmol/L (3.5-5.1); Protein, Total 6.3 g/dL (6.4-8.2); Sodium Level 144 mmol/L (136-145)
--- NOTE | 2020-10-26 06:50 | RAD REPORT ---
EXAM DESCRIPTION: RAD - Chest Single View - 10/25/2020 9:48 pm CLINICAL HISTORY: Ataxia, pain COMPARISON: October 15 TECHNIQUE: AP portable chest image was obtained 10/25/2020 9:48 pm . FINDINGS: Lungs are clear. Interstitial pattern matches comparison. Heart and vasculature are normal . No measurable pleural effusion and no pneumothorax. No acute bony abnormality seen. No acute aortic findings suspected. IMPRESSION: No acute cardiopulmonary process. No significant change from comparison study.
[2020-10-26] MEDS: DOCUSATE NA 100 MG CAP PO SCH ×2 (08:32→21:17)
[2020-10-26] MEDS: ENOXAPARIN 40 MG/0.4 ML SQ SCH (08:32)
[2020-10-26] MEDS ORDERED: POTASSIUM CL SA 10 MEQ TAB PO ONE (09:00)
--- NOTE | 2020-10-26 11:49 | RAD REPORT ---
EXAM DESCRIPTION: MRI - Brain Wo Cont - 10/26/2020 11:14 am CLINICAL HISTORY: Vertigo; vestibulocochlear dysfunction COMPARISON: No comparisons TECHNIQUE: Sagittal T1-weighted images were obtained along with axial PD, heavily T2-weighted and T2 -FLAIR images. Axial DWI and ADC mapping sequences were also obtained along with coronal heavily T2-w eighted images. FINDINGS: No intracranial hemorrhage, mass or acute infarction. There is no edema or shift of midlin e structures. No extra-axial fluid collections. Mckinney-matter/white matter junction is preserved. Signa l voids are seen as a normal finding in the major intracranial vessels. No measurable atrophy changes are present. Ventricles are normal in size. Patient has rare punctate f oci of chronic ischemic change scattered in the cerebral white matter. Mastoid air cells are clear. No cerebellopontine angle abnormality identifiable. No internal auditory canal abnormality evident on standard protocol. Paranasal sinuses are clear. No globe or orbital content abnormality. No sella or supra sella abnorma lity. IMPRESSION: Minimal cerebral white matter chronic ischemic change with no acute intracranial finding .
--- NOTE | 2020-10-26 12:10 | RAD REPORT ---
EXAM DESCRIPTION: CT - CTHCSPWOC - 10/26/2020 6:50 am CLINICAL HISTORY: Ataxia, neck pain TECHNIQUE: Contiguous axial CT images obtained through the brain without IV contrast. Coronal and sa gittal reformatted images were provided. This exam was performed according to our departmental dose-optimization program, which includes autom ated exposure control, adjustment of the mA and/or kV according to patient size and/or use of iterati ve reconstruction technique. COMPARISON: 10/15/2020 FINDINGS: Brain: No significant white matter changes. No focal mass effect. Mckinney-white matter differ entiation is within normal limits. No hemorrhage. Ventricles: No ventriculomegaly or midline shift. Extra-axial spaces: No extra-axial collection or hemorrhage. Paranasal sinuses and mastoid air cells: Well-aerated Vessels: There is atherosclerotic disease of the internal carotid arteries bilaterally. Bones: Unremarkable Soft tissues: Unremarkable EXAM DESCRIPTION: CT C-SPINE WITHOUT IV CONTRAST CLINICAL HISTORY: Ataxia, neck pain TECHNIQUE: Contiguous axial CT images obtained through the cervical spine without IV contrast. Coron al and sagittal reformatted images also provided. This exam was performed according to our departmental dose-optimization program, which includes autom ated exposure control, adjustment of the mA and/or kV according to patient size and/or use of iterati ve reconstruction technique. COMPARISON: None available for comparison FINDINGS: Vertebra: No acute fracture or subluxation. Disc spaces: Prior anterior fusion, discectomy and interposition graft placement at C4-C6. Moderate d egenerative changes at C3-C4 and C6-C7. Mild to moderate multilevel facet arthropathy, right greater than left. No critical canal stenosis. Multilevel foraminal narrowing, most pronounced, severe bilate rally at C3-C4. Prevertebral soft tissues: Unremarkable Lung apices: Biapical paraseptal emphysema. Other: Surgical clips about the thyroid. IMPRESSION: CT HEAD: 1. No acute intracranial or extra-axial abnormality. 2. Other findings as above. CT CERVICAL SPINE: No acute injury. Multilevel degenerative changes with associated foraminal compromise most pronounced bilaterally at C3-C4. No canal stenosis. Electronically signed by: Lorena Brennan MD 10/25/2020 10:42 PM CDT Due to temporary technical issues with the PACS/Fluency reporting system, reports are being signed by the in house radiologists without review as a courtesy to insure prompt reporting. The interpreting radiologist is fully responsible for the content of the report.
[2020-10-26] MEDS: HYDROCODONE/APAP 5/325 MG TAB PO PRN (12:11)
--- NOTE | 2020-10-26 12:56 | EKG ---
Test Date: 2020-10-25 Test Time: 21:31:00 [employer] Employee: EBENEZER MEASUREMENT RESULTS: Intervals: Rate: 70 WI: 118 QRSD: 126 QT: 418 QTc: 451 Vidor: P: -3 WI: 118 QRS: -35 T: 36 INTERPRETIVE STATEMENTS: Normal sinus rhythm Left axis deviation Right bundle branch block Moderate voltage criteria for LVH, may be normal variant Abnormal ECG Compared to ECG 10/15/2020 23:36:51 No significant changes Electronically Signed On 10-26-20 12:53:51 CDT by Juanito Blanc
--- NOTE | 2020-10-26 12:56 | EKG ---
Test Date: 2020-10-25 Test Time: 21:34:34 Banking Assistant: EBENEZER MEASUREMENT RESULTS: Intervals: Rate: 70 TX: 144 QRSD: 124 QT: 424 QTc: 457 Varna: P: 59 TX: 144 QRS: -30 T: 30 INTERPRETIVE STATEMENTS: Poor data quality, interpretation may be adversely affected Normal sinus rhythm Left axis deviation Right bundle branch block Moderate voltage criteria for LVH, may be normal variant Abnormal ECG Compared to ECG 10/25/2020 21:31:00 No significant changes Electronically Signed On 10-26-20 12:53:49 CDT by Juanito Blanc
[2020-10-26] MEDS: MECLIZINE HCL 12.5 MG TAB PO SCH ×2 (15:37→21:17)
[2020-10-26] MEDS: ATORVASTATIN 10 MG TAB PO SCH (21:17)
[2020-10-27 05:45] LABS: Absolute Lymphocytes (CBC) 1.9 K/uL (0.7-4.9); Basophils % 1.3 % (0-1.3); Hematocrit 39.3 % (36.0-45.0); Lymphocytes % 35.8 % (15.3-44.8); MPV 10.4 fL (7.6-11.3); RBC Red Blood Cell Count 4.33 M/uL (3.86-4.86)
[2020-10-27 06:19] LABS: ALT/SGPT 19 U/L (12-78); AST/SGOT 8 U/L (15-37); Albumin 3.3 g/dL (3.4-5.0); Alkaline Phosphatase 85 U/L (45-117); BUN Blood Urea Nitrogen 14 mg/dL (7-18); Bicarbonate 26 mmol/L (21-32); Bilirubin Total 0.2 mg/dL (0.2-1.0); Glucose Level 107 mg/dL (74-106); Magnesium 2.1 mg/dL (1.8-2.4); Phosphorus 3.5 mg/dL (2.5-4.9); Potassium 4.1 mmol/L (3.5-5.1); Protein, Total 6.3 g/dL (6.4-8.2); Sodium Level 142 mmol/L (136-145)
[2020-10-27 06:20] LABS: C-Reactive Protein < 2.90 mg/L (<3.00)
[2020-10-27 06:36] LABS: Folic Acid, (Folate) 7.8 ng/mL (3.1-17.5)
[2020-10-27] MEDS: ENOXAPARIN 40 MG/0.4 ML SQ SCH (08:23)
[2020-10-27] MEDS: DOCUSATE NA 100 MG CAP PO SCH ×2 (08:23→20:22)
[2020-10-27] MEDS: MECLIZINE HCL 12.5 MG TAB PO SCH ×3 (08:23→20:23)
[2020-10-27] MEDS ORDERED: ASPIRIN EC 81 MG TAB PO SCH (09:00)
[2020-10-27] MEDS: HYDROCODONE/APAP 5/325 MG TAB PO PRN ×2 (12:41→18:21)
[2020-10-27] MEDS: predniSONE 20 MG TAB PO SCH (14:38)
[2020-10-27] MEDS: BACLOFEN 10 MG TAB PO SCH (14:38)
[2020-10-27] MEDS: WATER FOR INJ,STERILE 10 ML IV SCH (14:39)
[2020-10-27] MEDS ORDERED: CYANOCOBALAMIN 1000MCG/ML INJ IM ONE (15:00)
[2020-10-27] MEDS ORDERED: HYDROCORTISONE SUC 100 MG INJ IV ONE (15:00)
--- NOTE | 2020-10-27 19:18 | CON ---
Reason For Consultation: Consultation called because of difficulty with balance and dizziness. History Of Present Illness: Ms. Ching is a 64-year-old right-handed patient with COPD, who comes with about 2 weeks' worth of occasional vertigo with unsteady gait and tendency to fall to either side. She had worsening of such symptoms along with slurred speech, difficulty of focusing, getting the right words out along with blurred vision. At [facility], her head, cervical spine CT scan showed moderate degenerative disk disease at C3-C4 and C6-C7. There was no critical canal stenosis. There was severe bilateral foraminal stenosis at C3-4. A brain CT scan showed no acute findings and MRI of the brain as indicated showed no acute ischemic hemorrhagic stroke. Since hospitalization, she has had significant pain in the back of her neck, which may go superiorly and inferiorly into the shoulders. Past Medical History: As indicated in addition to an ascending aortic aneurysm, diverticulosis, hyperparathyroidism, constipation. Allergies: ASPIRIN and MEPERIDINE Medications: At home, albuterol nebulizer as needed, Colace 100 mgcapsule daily and Trelegy 1 puff daily. Family History: Noncontributory. Social History: No alcohol, tobacco, or IV drug use. Surgical History: Colon surgery, hysterectomy, cervical fusion, and parathyroid surgery. Review of Systems: The patient had no recent fevers or chills. No nausea, vomiting, myalgias, arthralgias, rash, headache, weight change. She has had as mentioned cervical pain with headache. Physical Examination: Vital Signs: Blood pressure 128/69, pulse 75, respiratory rate 18, temperature 97.7, oxygen saturation 97%. General: Ms. Ching is resting in bed. She is in mild to moderate distress due to headache and posterior neck pain. HEENT: She is otherwise normocephalic, atraumatic. Sclerae anicteric. Oropharynx is moist and pink. Neck: Supple. There is no nuchal rigidity. Chest: Clear. Heart: Regular. Extremities: Show no edema or cyanosis. Neurologic: She is alert and oriented to situation, place, and person. Cranial nerves show no abnormalities. She does have pain on palpation in the back of her neck. She does not have any trigger points in the back of her neck. Motor examination; she does not have focal weakness in upper or lower extremities. Sensory exam shows a mild stocking-glove loss, light touch temperature. Coordination is intact. She does have on lifting her head in the bed and turning quickly to either side some transient symptoms of vertigo. Her reflexes are symmetric at 1+ upper and lower extremities and she does require some assistance to stand and ambulate due to feelings of vertigo. She will be ambulated with the physical therapist, which was actually done today. She did take 10 many steps and 6 side leg lifts requiring contact guard assistance. Laboratory Studies: Complete blood count with differential is normal done 3 days, each normal. INR is normal. Chemistries essentially unremarkable. Glucose 107, calcium 8.3. Liver function studies are normal. Thyroid stimulating hormone and free T4 is normal. Cholesterol panel is unremarkable. Urinalysis is negative. Assessment: It sounds in this 64-year-old patient with positional vertigo. She does have significant C3-4 nerve root compression potentially contributing to her symptoms. She does not have focal neurologic deficits and MRI of the brain is negative. Plan: 1. Baclofen 10 mg daily. May give a course of steroids, prednisone 20 mg daily. 2. MRI of the cervical spine. 3. May consider Topamax 25 mg at night. 4. May consider Ubrelvy for abortive headache treatment. 5. May require neurosurgical evaluation for possible cervical nerve root compression. 6. The patient may require some physical therapy to help with her balance, gait, coordination, and also the Judy maneuver. NIR/DOMENICA Voice ID: [id number] Report ID: [id number] ELLIOTT
[2020-10-27] MEDS: HYDROCORTISONE SUC 100 MG INJ IV SCH (19:35)
[2020-10-27] MEDS: CYANOCOBALAMIN 1000MCG/ML INJ IM SCH (19:36)
[2020-10-27] MEDS: ACETAMINOPHEN 500 MG TAB PO PRN (20:23)
[2020-10-27] MEDS: ATORVASTATIN 10 MG TAB PO SCH (20:23)
--- NOTE | 2020-10-27 20:31 | RAD REPORT ---
EXAM DESCRIPTION: MRI - C Spine Wo Cont - 10/27/2020 7:24 pm CLINICAL HISTORY: neck pain with arm radiation COMPARISON: Head C Spine Mpr Wo Con dated 10/25/2020 TECHNIQUE: Sagittal T1-weighted, T2-weighted and T2-STIR sequences were obtained as well as T2 medic sequence. FINDINGS: Cervical vertebral bodies are normal in height and alignment. No suspicious marrow edema o r marrow replacing process. No paraspinal mass. Patient is status post fusion C4-C6. Cerebellar tonsils and mid-line skull base show no suspicious finding. No significant finding at the C1 and C2 levels. C2-3 level: No significant findings. C3-4 level: Prominent treating disc material and endplate spurring is present attenuating the anterio r subarachnoid space. No flattening of the cord. Canal is 11 mm in the midline. Uncovertebral joint h ypertrophy and disc bulge changes cause bilateral foraminal stenosis. C4-5 level: No significant findings. C5-6 level: No significant findings. C6-7 level: Posterior endplate spurring and disc bulge changes attenuate the anterior subarachnoid sp tobias. There is contact but no flattening of the cord. Canal is 10 mm in the midline. Disc bulge and en dplate spurring changes cause bilateral foraminal stenosis. C7-T1 level: No significant findings. Cervical cord shows no focal narrowing, expansion or signal abnormality. IMPRESSION: Prominent cervical spondylosis changes are present at the superior and inferior margins of the fused levels. C3-4 and C6-7 both show prominent posterior disc bulge and endplate spurring changes extending into t he exit foramina. Bilateral foraminal stenosis results. Canal is borderline stenotic at C6-7.
[2020-10-28] MEDS: ENOXAPARIN 40 MG/0.4 ML SQ SCH (08:21)
[2020-10-28] MEDS: MECLIZINE HCL 12.5 MG TAB PO SCH ×3 (08:21→21:55)
[2020-10-28] MEDS: predniSONE 20 MG TAB PO SCH (08:21)
[2020-10-28] MEDS: HYDROCORTISONE SUC 100 MG INJ IV SCH ×2 (08:21→21:56)
[2020-10-28] MEDS: BACLOFEN 10 MG TAB PO SCH (08:21)
[2020-10-28] MEDS: DOCUSATE NA 100 MG CAP PO SCH ×2 (08:22→21:55)
[2020-10-28] MEDS: CYANOCOBALAMIN 1000MCG/ML INJ IM SCH (13:05)
[2020-10-28] MEDS: ACETAMINOPHEN 500 MG TAB PO PRN (13:07)
[2020-10-28] MEDS: HYDROCODONE/APAP 5/325 MG TAB PO PRN (14:20)
[2020-10-28] MEDS ORDERED: ACETAMIN/CAFFEINE/BUTALB TAB PO ONE (17:44)
[2020-10-28] MEDS: TOPIRAMATE 25 MG TAB PO SCH (21:00)
[2020-10-28] MEDS: ATORVASTATIN 10 MG TAB PO SCH (21:54)
[2020-10-29 08:52] VITALS: BP 134/68; TEMP 96.9
[2020-10-29] MEDS: ENOXAPARIN 40 MG/0.4 ML SQ SCH (09:00)
[2020-10-29] MEDS: predniSONE 20 MG TAB PO SCH (09:00)
[2020-10-29] MEDS: BACLOFEN 10 MG TAB PO SCH (09:26)
[2020-10-29] MEDS: MECLIZINE HCL 12.5 MG TAB PO SCH (09:26)
[2020-10-29] MEDS: DOCUSATE NA 100 MG CAP PO SCH (09:26)
[2020-10-29] MEDS: TOPIRAMATE 25 MG TAB PO SCH (09:26)
[2020-10-29] MEDS: HYDROCORTISONE SUC 100 MG INJ IV SCH (09:27)
[2020-10-29 10:09] VITALS: O2SAT 98
--- NOTE | 2020-11-01 04:47 | P.DS ---
Discharge Date: 10/29/20 Primary Care Provider: Celia Disposition: ROUTINE DISCHARGE Discharge Condition: GOOD Reason for Admission: ataxia Consultations: Neurology Brief History of Present Illness: Ms. Ching is a 64 yo F with COPD here today for 1.5 weeks of ataxic gait and dizziness with ambulation. She says today she started to take a few steps, became very dizzy, and almost fell. She said a few days ago, her son told her that her speech was slurred. She says she has to focus to enunciate her words. She reports blurry vision. Denies nausea, vomiting, falls, and sensory disturbances. Hospital Course: Patient was found to be severely deficient in her B12. Meclizine did not work for her. Her strength was improving and she was ambulating with physical therapy around the nurses station. However, patient's MRI of the cervical spine did really show any significant deficits. Patient did have foraminal stenosis. Patient will follow with Neurology as an outpatient. At this time, patient is stable for discharge home. Vital Signs/Physical Exam: Temp Pulse Resp BP Pulse Ox 96.9 F 80 18 134/68 96 10/29/20 08:00 10/29/20 08:00 10/29/20 08:00 10/29/20 08:00 10/29/20 08:00 General: Alert, In no apparent distress, Oriented x3 Laboratory Data at Discharge: WBC 5.40 K/uL (4.3-10.9) D 10/27/20 05:28 Hgb 13.1 g/dL (12.0-15.0) 10/27/20 05:28 Hct 39.3 % (36.0-45.0) 10/27/20 05:28 Plt Count 187 K/uL (152-406) 10/27/20 05:28 PT 11.8 SECONDS (9.5-12.5) 10/26/20 05:00 INR 1.03 10/26/20 05:00 Sodium 142 mmol/L (136-145) 10/27/20 05:28 Potassium 4.1 mmol/L (3.5-5.1) 10/27/20 05:28 BUN 14 mg/dL (7-18) 10/27/20 05:28 Creatinine 0.50 mg/dL (0.55-1.3) L 10/27/20 05:28 Glucose 107 mg/dL (74-106) H 10/27/20 05:28 Phosphorus 3.5 mg/dL (2.5-4.9) 10/27/20 05:28 Magnesium 2.1 mg/dL (1.8-2.4) 10/27/20 05:28 Total Bilirubin 0.2 mg/dL (0.2-1.0) 10/27/20 05:28 AST 8 U/L (15-37) L 10/27/20 05:28 ALT 19 U/L (12-78) 10/27/20 05:28 Alkaline Phosphatase 85 U/L (45-117) 10/27/20 05:28 Triglycerides 84 mg/dL (<150) 10/26/20 05:00 Cholesterol 142 mg/dL (<200) 10/26/20 05:00 HDL Cholesterol 54 mg/dL (40-60) 10/26/20 05:00 Cholesterol/HDL Ratio 2.63 10/26/20 05:00 Home Medications: Albuterol 1 aero IH SEECOM PRN 10/26/20 Docusate [Colace Cap*] 1 cap PO DAILYPRN PRN 10/26/20 Fluticasone/Umeclidin/Vilanter [Trelegy Ellipta 100-62.5-25] 1 puff IH DAILY 10/26/20 Atorvastatin Calcium [Lipitor*] 10 mg PO BEDTIME #30 tab 10/29/20 Baclofen [Lioresal*] 10 mg PO DAILY #30 tab 10/29/20 Cyanocobalamin/Cobamamide [Vitamin B-12 5,000 Mcg Tab Sl] 1 each SL DAILY #30 tab.subl 10/29/20 Docusate [Colace Cap*] 100 mg PO BID #30 cap 10/29/20 Topiramate [Topamax*] 25 mg PO BID #60 tab 10/29/20 predniSONE [Prednisone*] 20 mg PO DAILY #10 tab 10/29/20 New Medications: Docusate [Colace Cap*] 100 mg PO BID #30 cap Baclofen [Lioresal*] 10 mg PO DAILY #30 tab Atorvastatin Calcium [Lipitor*] 10 mg PO BEDTIME #30 tab predniSONE [Prednisone*] 20 mg PO DAILY #10 tab Topiramate [Topamax*] 25 mg PO BID #60 tab Cyanocobalamin/Cobamamide [Vitamin B-12 5,000 Mcg Tab Sl] 1 each SL DAILY #30 tab.subl Physician Discharge Instructions: PROBLEM: Dizziness, Ataxia GOAL: Clear understanding of disease process INSTRUCTIONS: Diet: Heart healthy Activity: Fall precautions OK TO DC IV AND DC HOME FOLLOW-UP WITH PCP IN 1-2 WEEKS FOLLOW-UP WITH NEUROLOGY TODAY AT 1500 CALL ME AT [phone] IF ANY QUESTIONS REGARDING HOSPITAL STAY MAY NEED FURTHER EVALUATION AN OUTPATIENT WITH SPINE SURGERY TO EVALUATE LUMBAR SPINE Diet: AHA Activity: Fall precautions Followup: Troy Eldridge MD [ASSOCIATE-ACTIVE - CAN ADMIT] - Joshua Yang MD [Primary Care Provider] - Time spent managing pt's care (in minutes): 35
--- NOTE | 2020-11-01 04:49 | P.PN ---
Subjective Date of Service: 10/27/20 Subjective: No new changes, No C/O voiced, Improving Patient's clinical status is improving. Continue with B12. Awaiting MRI of the brain and cervical spine. Neurology consultation pending. Review of Systems 10-point ROS is otherwise unremarkable Physical Examination - Vital Signs Temperature: 96.9 F Blood Pressure: 134/68 Pulse: 80 Respirations: 18 Pulse Ox (%): 96 - Physical Exam General: Alert, In no apparent distress, Oriented x3 Respiratory: Clear to auscultation bilaterally, Normal air movement Cardiovascular: Regular rate/rhythm, Normal S1 S2, No murmurs Gastrointestinal: Normal bowel sounds, Soft and benign, Non-distended, No tenderness Musculoskeletal: No clubbing, No swelling, No tenderness Neurological: Sensation intact, Cranial nerves 3-12 intact Lymphatics: No axilla or inguinal lymphadenopathy - Studies Medications List Reviewed: Yes Assessment & Plan - Problems (Diagnosis) (1) Ataxic gait Status: Acute (2) Dizziness Status: Acute (3) COPD (chronic obstructive pulmonary disease) Status: Chronic Qualifiers: COPD type: unspecified COPD Qualified Code(s): J44.9 - Chronic obstructive pulmonary disease, unspecified - Plan Plan: 1. Continue B12 supplementation 2. MRI of the C-spine and brain 3. Gentle hydration 4. Physical therapy evaluation 5. Neurology consultation 6. GI and DVT prophylaxis Discharge Plan: Home Plan to discharge in: Greater than 2 days - Advance Directives Does patient have a Living Will: Yes Does patient have a Durable POA for Healthcare: Yes - Code Status/Comfort Care Code Status Assessed: Yes Code Status: Full Code Critical Care: No Time Spent Managing PTS Care (In Minutes): 45
--- NOTE | 2020-11-01 04:54 | P.PN ---
Date of Service: 10/28/20 Subjective Patient walked with physical therapy. MRI of the cervical spine still pending. Review of Systems 10-point ROS is otherwise unremarkable Physical Examination - Vital Signs Reviewed - Physical Exam General: Alert, In no apparent distress, Oriented x3 Respiratory: Clear to auscultation bilaterally, Normal air movement Cardiovascular: Regular rate/rhythm, Normal S1 S2, No murmurs Gastrointestinal: Normal bowel sounds, Soft and benign, Non-distended, No tenderness Musculoskeletal: No clubbing, No swelling, No tenderness Neurological: Sensation intact, Cranial nerves 3-12 intact Assessment & Plan - Problems (Diagnosis) (1) Ataxic gait Status: Acute (2) Dizziness Status: Acute (3) COPD (chronic obstructive pulmonary disease) Status: Chronic Qualifiers: COPD type: unspecified COPD Qualified Code(s): J44.9 - Chronic obstructive pulmonary disease, unspecified - Plan Plan: 1. Continue B12 supplementation 2. MRI of the brain with no abnormality. C-spine pending 3. Hep-Lock IV 4. Physical therapy evaluation appreciated; arrange for outpatient PT 5. Neurology consultation appreciated 6. GI and DVT prophylaxis
== END 2020-10-29 11:26 | disposition home or self-care (01) | DRG 93 ==
LOC: ER 19:24 → 2ND 10-26 00:37 → OBSVTOIN 10-27 14:44
PROVIDERS: ADMIT Hospitalist; ATTEND Hospitalist
DX: R26.0 Ataxic gait (principal); E53.8 Deficiency of other specified B group vitamins; R42 Dizziness and giddiness; J44.9 Chronic obstructive pulmonary disease, unspecified; M48.02 Spinal stenosis, cervical region
CPT/HCPCS: 36415; 70450; 70551; 71045; 72125; 72141; 80048; 80053; 80061; 80076; 81003; 82607; 82746; 83735; 83880; 84100; 84439; 84443; 84484; 85025; 85610; 85652; 86140; 93005; 94760; 96374; 96375; 97112; 97116; 97161; 97530; 99285; G0378; J1650; J1720; J2405; J3420; J7030; J7512

== ENCOUNTER 2022-07-17 18:56 | Emergency (ER) | payer OTHER ==
--- OUTSIDE RECORDS SUMMARY | 2022-07-17 19:03 | XMS REPORT | Continuity of Care Document ---
:1955 Author Organization [facility] t Address [address] [place] [address]. [address] [place] [address] Care Team Providers Name Role Phone Kacey MCCALLUM, Macy Smith Primary Care Physician DENTON NARANJO Attending Clinician Unavailable Denton Naranjo MD Attending Clinician [phone] GEE SANTIAGO Attending Clinician Unavailable Gee Santiago MD Attending Clinician DANGELO ZARAGOZA Attending Clinician Unavailable DANGELO ZARAGOZA Attending Clinician Unavailable Doctor Unassigned, [place] Attending Clinician Unavailable ARISTEO KELLER Attending Clinician Unavailable Aristeo Nava Attending Clinician [phone] Aleks Steven MD Attending Clinician ALEKS STEVEN Attending Clinician Unavailable DREA Attending Clinician Unavailable Marquita Rollins DO Attending Clinician MARQUITA ROLLINS Attending Clinician Unavailable ARISTEO KELLER Admitting Clinician Unavailable GEE SANTIAGO Admitting Clinician Unavailable ERICKSON_R Admitting Clinician Unavailable Payers Payer Name Policy Type Policy Number Effective Date Expiration Date Jose mobley [employer] DUAL [id number] 2021 ACCESS OPEN PPO 00:00:00 [place]ARE [place] [id number] 2021 CLASSIC NO 00:00:00 PREMIUM HMO AETNA (HMO) [id number] 2019 2020 00:00:00 00:00:00 Problems Condition Condition Condition Status Onset Resolution Last Treating Co mments Source Name Details Category Date Date Treatment Clinician Date Angina at Angina at Disease Active Met [facility] rest rest 11-19 st 00:00: Hospita 00 l No known No known Disease Unive rs active active ity of problems problems [place] [facility] Allergies, Adverse Reactions, Alerts Allergy Allergy Status Severity Reaction(s) Onset Inactive Treating Comm ents Source Name Type Date Date Clinician [place] Propensi Active Unknown - Unive rs ty to See comments 4-12 ity of adverse 00:00: [place] reaction 00 Medical s Branch OAK DRUG Active Unknown-Cmnt Univ ers INGREDI 4-12 ity of 00:00: [place] 00 [facility] Aspirin Propensi Active Palpitations U nivers ty to 2- ity of adverse 00:00: [place] reaction 00 Medical s Branch ASPIRIN DRUG Active High Palpitations Uni vers INGREDI 2- ity of 00:00: [place] 00 Medical Branch Phenobar Propensi Active Unknown - 2019-04 Uni vers bital ty to See comments 2- ity of adverse 00:00: [place] reaction 00 Medical s Branch PHENOBAR DRUG Active Unknown-Cmnt 2019-04 Un moi BITAL INGREDI 2- ity of 00:00: [place] 00 [facility] Branch Aspirin Propensi Active Other (See palpitati Methodi ty to Comments) 11-[address] adverse 00:00: Hospita reaction 00 l s to drug Meper[place] Propensi Active Anaphylaxis M ethodi ne ty to 11-19 st adverse 00:00: Hospita reaction 00 l s to drug Family History Family Member Diagnosis Comments Start Date Stop Date Source Natural brother No Known Problems [facility] Natural mother No Known Problems [facility] Natural sister [facility] Social History Social Habit Start Date Stop Date Quantity Comments Source History of Current smoker University of tobacco use [facility] Exposure to 2022-01-28 2022-02-07 Not sure University SARS-CoV-2 00:00:00 11:12:00 [place] [facility] (event[facility] Tobacco use and 2021-05-31 2021-05-31 Smokeless tobacco Un iversity of exposure 00:00:00 00:00:00 non-user [facility] Alcohol intake 2018-01-09 2018-01-09 Current [facility] 00:00:00 00:00:00 non-drinker of alcohol (finding) Sex [birth year] [facility] 00:00:00 00:00:00 Smoking Status Start Date Stop Date Source Ex-smoker 2021-05-31 00:00:00 2021-05-31 00:00:00 [facility] Medications Ordered Filled Start Stop Current Ordering Indication Dosage Frequency Signature Comments Components Source Medication Medication Date Date Medication? Clinician (SIG) Name Name meloxicam Yes [id number] 7.5mg Take 1 U nivers 7.5 mg 4-12 tablet by ity of tablet 00:00: mouth [place] 00 daily. Medical Branch meloxicam Yes [id number] 7.5mg Take 1 U nivers 7.5 mg 4-12 tablet by ity of tablet 00:00: mouth [place] 00 daily. Medical Branch meloxicam Yes [id number] 7.5mg Take 1 U nivers 7.5 mg 4-12 tablet by ity of tablet 00:00: mouth [place] 00 daily. Medical Branch meloxicam Yes [id number] 7.5mg Take 1 U nivers 7.5 mg 4-12 tablet by ity of tablet 00:00: mouth [place] 00 daily. Medical Branch meloxicam Yes [id number] 7.5mg Take 1 U nivers 7.5 mg 4-12 tablet by ity of tablet 00:00: mouth [place] 00 daily. Medical Branch meloxicam Yes [id number] 7.5mg Take 1 U nivers 7.5 mg 4-12 tablet by ity of tablet 00:00: mouth [place] 00 daily. Medical Branch meloxicam Yes [id number] 7.5mg Take 1 U nivers 7.5 mg 4-12 tablet by ity of tablet 00:00: mouth [place] 00 daily. Medical Branch meloxicam 2-0 Yes [id number] 7.5mg Take 1 U nivers 7.5 mg 4-12 tablet by ity of tablet 00:00: mouth [place] 00 daily. Medical Branch meloxicam 2-0 Yes [id number] 7.5mg Take 1 U nivers 7.5 mg 4-12 tablet by ity of tablet 00:00: mouth [place] 00 daily. Medical Branch meloxicam 2021-0 Yes [id number] 7.5mg Take 1 U nivers 7.5 mg 4-12 tablet by ity of tablet 00:00: mouth [place] 00 daily. Medical Branch meloxicam 2021-0 Yes [id number] 7.5mg Take 1 U nivers 7.5 mg 4-12 tablet by ity of tablet 00:00: mouth [place] 00 daily. Medical Branch meloxicam 2021-0 Yes [id number] 7.5mg Take 1 U nivers 7.5 mg 4-12 tablet by ity of tablet 00:00: mouth [place] 00 daily. Medical Branch meloxicam 2021-0 Yes [id number] 7.5mg Take 1 U nivers 7.5 mg 4-12 tablet by ity of tablet 00:00: mouth [place] 00 daily. Medical Branch methylPREDN 2-0 Yes [id number] Follow Univers ISolone 2-01 package ity of (MEDROL, 00:00: directions Bob as GUNNAR,) 4 mg 00 Medical tablets Branch methylPREDN 2-0 Yes [id number] Follow Univers ISolone 2-01 package ity of (MEDROL, 00:00: directions Bob as GUNNAR,) 4 mg 00 Medical tablets Branch methylPREDN 2-0 Yes [id number] Follow Univers ISolone 2-01 package ity of (MEDROL, 00:00: directions Bob as GUNNAR,) 4 mg 00 Medical tablets Branch methylPREDN 2-0 Yes [id number] Follow Univers ISolone 2-01 package ity of (MEDROL, 00:00: directions Bob as GUNNAR,) 4 mg 00 Medical tablets Branch methylPREDN 2-0 Yes [id number] Follow Univers ISolone 2-01 package ity of (MEDROL, 00:00: directions Bob as GUNNAR,) 4 mg 00 Medical tablets Branch methylPREDN 2022-0 Yes [id number] Follow Univers ISolone 2-01 package ity of (MEDROL, 00:00: directions Bob as GUNNAR,) 4 mg 00 Medical tablets Branch methylPREDN 2022-0 Yes [id number] Follow Univers ISolone 2-01 package ity of (MEDROL, 00:00: directions Bob as GUNNAR,) 4 mg 00 Medical tablets Branch methylPREDN 2022-0 Yes [id number] Follow Univers ISolone 2-01 package ity of (MEDROL, 00:00: directions Bob as GUNNAR,) 4 mg 00 Medical tablets Branch methylPREDN 2022-0 Yes [id number] Follow Univers ISolone 2-01 package ity of (MEDROL, 00:00: directions Bob as GUNNAR,) 4 mg 00 Medical tablets Branch methylPREDN 2022-0 Yes [id number] Follow Univers ISolone 2-01 package ity of (MEDROL, 00:00: directions Bob as GUNNAR,) 4 mg 00 Medical tablets Branch methylPREDN 2022-0 Yes [id number] Follow Univers ISolone 2-01 package ity of (MEDROL, 00:00: directions Bob as GUNNAR,) 4 mg 00 Medical tablets Branch methylPREDN 2022-0 Yes [id number] Follow Univers ISolone 2-01 package ity of (MEDROL, 00:00: directions Bob as GUNNAR,) 4 mg 00 Medical tablets Branch methylPREDN 2022-0 Yes [id number] Follow Univers ISolone 2-01 package ity of (MEDROL, 00:00: directions Bob as GUNNAR,) 4 mg 00 Medical tablets Branch albuterol 2019- Yes [id number] 2.5mg Inhale 3 Univers 2.5 mg /3 2-27 mL every 4 ity of mL (0.083 00:00: (four) [place] %) 00 hours as Medical nebulizer needed for Bran ch solution Wheezing or Shortness of Breath. May also nebulize one extra every 6 hours. albuterol 2019-04 Yes [id number] 2.5mg Inhale 3 Univers 2.5 mg /3 2-27 mL every 4 ity of mL (0.083 00:00: (four) [place] %) 00 hours as Medical nebulizer needed for Bran ch solution Wheezing or Shortness of Breath. May also nebulize one extra every 6 hours. albuterol 2019-04 Yes [id number] 2.5mg Inhale 3 Univers 2.5 mg /3 2-27 mL every 4 ity of mL (0.083 00:00: ([facility]) [place] %) 00 hours as Medical nebulizer needed for Bran ch solution Wheezing or Shortness of Breath. May also nebulize one extra every 6 hours. albuterol 2020-1 Yes [id number] 2.5mg Inhale 3 Univers 2.5 mg /3 2-27 mL every 4 ity of mL (0.083 00:00: ([facility]) [place] %) 00 hours as Medical nebulizer needed for Bran ch solution Wheezing or Shortness of Breath. May also nebulize one extra every 6 hours. albuterol 2019-1 Yes [id number] 2.5mg Inhale 3 Univers 2.5 mg /3 2-27 mL every 4 ity of mL (0.083 00:00: ([facility]) [place] %) 00 hours as Medical nebulizer needed for Bran ch solution Wheezing or Shortness of Breath. May also nebulize one extra every 6 hours. albuterol 2019-1 Yes [id number] 2.5mg Inhale 3 Univers 2.5 mg /3 2-27 mL every 4 ity of mL (0.083 00:00: ([facility]) [place] %) 00 hours as Medical nebulizer needed for Bran ch solution Wheezing or Shortness of Breath. May also nebulize one extra every 6 hours. albuterol 2019-1 Yes [id number] 2.5mg Inhale 3 Univers 2.5 mg /3 2-27 mL every 4 ity of mL (0.083 00:00: ([facility]) [place] %) 00 hours as Medical nebulizer needed for Bran ch solution Wheezing or Shortness of Breath. May also nebulize one extra every 6 hours. albuterol 2019-1 Yes [id number] 2.5mg Inhale 3 Univers 2.5 mg /3 2-27 mL every 4 ity of mL (0.083 00:00: ([facility]) [place] %) 00 hours as Medical nebulizer needed for Bran ch solution Wheezing or Shortness of Breath. May also nebulize one extra every 6 hours. albuterol 2019-1 Yes [id number] 2.5mg Inhale 3 Univers 2.5 mg /3 2-27 mL every 4 ity of mL (0.083 00:00: (four) [place] %) 00 hours as Medical nebulizer needed for Bran ch solution Wheezing or Shortness of Breath. May also nebulize one extra every 6 hours. albuterol 2019- Yes [id number] 2.5mg Inhale 3 Univers 2.5 mg /3 2-27 mL every 4 ity of mL (0.083 00:00: (four) [place] %) 00 hours as Medical nebulizer needed for Bran ch solution Wheezing or Shortness of Breath. May also nebulize one extra every 6 hours. albuterol 2019- Yes [id number] 2.5mg Inhale 3 Univers 2.5 mg /3 2-27 mL every 4 ity of mL (0.083 00:00: (four) [place] %) 00 hours as Medical nebulizer needed for Bran ch solution Wheezing or Shortness of Breath. May also nebulize one extra every 6 hours. albuterol 2019- Yes [id number] 2.5mg Inhale 3 Univers 2.5 mg /3 2-27 mL every 4 ity of mL (0.083 00:00: (four) [place] %) 00 hours as Medical nebulizer needed for Bran ch solution Wheezing or Shortness of Breath. May also nebulize one extra every 6 hours. albuterol 2019- Yes [id number] 2.5mg Inhale 3 Univers 2.5 mg /3 2-27 mL every 4 ity of mL (0.083 00:00: (four) [place] %) 00 hours as Medical nebulizer needed for Bran ch solution Wheezing or Shortness of Breath. May also nebulize one extra every 6 hours. losartan Yes 25mg QD Take 25 mg Met hodi (COZAAR) 25 -[address] MG tablet 12:03: daily. Hospit a 42 l acetaminoph Yes 1{tbl} Q4H Take 1 Me [facility] en-codeine 9-[address] (TYLENOL 12:03: mouth Hospita WITH 42 every 4 l CODEINE #3) (four) 300-30 mg hours as per tablet needed for moderate pain. tiZANidine 0 Yes 4mg Q8H Take 4 mg [facility] (ZANAFLEX) 9-[address] 4 MG tablet 12:03: every 8 Hos gabby 42 (eight) l hours as needed for muscle spasms. losartan 2018-0 Yes 25mg QD Take 25 mg Met hodi (COZAAR) 25 9-[address] MG tablet 12:03: daily. Hospit a 42 l acetaminoph 2018-0 Yes 1{tbl} Q4H Take 1 Me [facility]odi en-codeine 9-[address] (TYLENOL 12:03: mouth Hospita WITH 42 every 4 l CODEINE #3) (four) 300-30 mg hours as per tablet needed for moderate pain. tiZANidine 2018-0 Yes 4mg Q8H Take 4 mg Me [facility] (ZANAFLEX) 9-[address] 4 MG tablet 12:03: every 8 Hos gabby 42 (eight) l hours as needed for muscle spasms. losartan 2018-0 Yes 25mg QD Take 25 mg Met hodi (COZAAR) 25 9-[address] MG tablet 12:03: daily. Hospit a 42 l acetaminoph 2018-0 Yes 1{tbl} Q4H Take 1 Me thodi en-codeine 9-[address] (TYLENOL 12:03: mouth Hospita WITH 42 every 4 l CODEINE #3) (four) 300-30 mg hours as per tablet needed for moderate pain. tiZANidine 2018-0 Yes 4mg Q8H Take 4 mg Me thodi (ZANAFLEX) 9-[address] 4 MG tablet 12:03: every 8 Hos gabby 42 (eight) l hours as needed for muscle spasms. Vital Signs Vital Name Observation Time Observation Value Comments Source Body temperature 2022-02-07 16:20:00 36.44 [facility] Body height 2022-02-07 16:20:00 160 cm General acute hospital Body weight 2022-02-07 16:20:00 106.414 kg General acute hospital BMI 2022-02-07 16:20:00 41.56 kg/m2 General acute hospital Systolic blood 2022-02-02 18:04:00 148 mm[Hg] Pradip donohue [facility] [place] [facility] Diastolic blood 2022-02-02 18:04:00 85 mm[Hg] [facility] Heart rate 2022-02-02 18:04:00 86 /min General acute hospital Body temperature 2022-02-02 18:04:00 37.06 [facility] ers[facility] Body height 2022-02-02 18:04:00 160 cm Universi ty of [facility] Body weight 2022-02-02 18:04:00 105.597 kg Universi ty [facility] BMI 2022-02-02 18:04:00 41.24 kg/m2 Universi ty [facility] Systolic blood 2021-11-24 16:03:00 135 mm[Hg] Univer sity of [facility] Diastolic blood 2021-11-24 16:03:00 84 mm[Hg] Unive rsity of [facility] Heart rate 2021-11-24 16:03:00 83 /min [facility] Body temperature 2021-11-24 16:03:00 35.94 [facility] height 2021-11-24 16:03:00 160 cm Universi ty [facility] Body weight 2021-11-24 16:03:00 106.505 kg Universi ty [facility] BMI 2021-11-24 16:03:00 41.59 [facility]m2 [facility] Procedures Procedure Date / Time Performed Performing Clinician [facility] e REFERRAL- 2022-01-11 05:01:00 Doctor Unassigned, No Univer [facility] REQUEST/RESPONSE Name [facility] EXTERNAL PROVIDER 2021-12-02 05:01:00 Doctor Unassigned, No Univ [facility] RECORDS Name [facility] Plan of Care Planned Activity Planned Date Details Comments Source Future Scheduled 2022-05-25 COVID-19 VACCINE (#1) [facility] Test 07:04:03 [code = COVID-19 VACCINE (#1)] Future Scheduled 2022-05-25 Screening for [facility] Test 07:04:03 malignant neoplasm of cervix (procedure) [code = 690221904] Future Scheduled 2022-05-25 BREAST CANCER [facility] Test 07:04:03 SCREENING [code = BREAST CANCER SCREENING] Future Scheduled 2022-05-25 COLONOSCOPY SCREENING [facility] Test 07:04:03 [code = COLONOSCOPY SCREENING] Future Scheduled 2022-05-25 SHINGLES VACCINES (1 [facility] Test 07:04:03 of 2) [code = SHINGLES VACCINES (1 of 2)] Future Scheduled 2022-05-25 INFLUENZA VACCINE [facility] Test 07:04:03 [code = INFLUENZA VACCINE] Future Scheduled 2022-05-25 COVID-19 VACCINE (#1) [facility] Test 07:04:03 [code = COVID-19 VACCINE (#1)] Future Scheduled 2022-05-25 Screening for [facility] Test 07:04:03 malignant neoplasm of cervix (procedure) [code = 290481659] Future Scheduled 2022-05-25 BREAST CANCER [facility] Test 07:04:03 SCREENING [code = BREAST CANCER SCREENING] Future Scheduled 2022-05-25 COLONOSCOPY SCREENING [facility] Test 07:04:03 [code = COLONOSCOPY SCREENING] Future Scheduled 2022-05-25 SHINGLES VACCINES (1 Met [facility] Test 07:04:03 of 2) [code = SHINGLES VACCINES (1 of 2)] Future Scheduled 2022-05-25 INFLUENZA VACCINE [facility] Test 07:04:03 [code = INFLUENZA VACCINE] Future Scheduled 2021-05-31 COVID-19 VACCINE (1) [facility] Test 13:44:41 [code = COVID-19 VACCINE (1)] Future Scheduled 2021-05-31 Screening for [facility] Test 13:44:41 malignant neoplasm of cervix (procedure) [code = 819845423] Future Scheduled 2021-05-31 BREAST CANCER [facility] Test 13:44:41 SCREENING [code = BREAST CANCER SCREENING] Future Scheduled 2021-05-31 COLONOSCOPY SCREENING [facility] Test 13:44:41 [code = COLONOSCOPY SCREENING] Future Scheduled 2021-05-31 SHINGLES VACCINES [facility] Test 13:44:41 (#1) [code = SHINGLES VACCINES (#1)] Future Scheduled 2021-05-31 INFLUENZA VACCINE [facility] Test 13:44:41 [code = INFLUENZA VACCINE] Encounters Start End Encounter Admission Attending Care Care Encounter Source Date/Time Date/Time Type Type Clinicians Facility Department ID 2022-02-07 2022-02-07 Outpatient R JOSE A [facility] [id number] Univers 11:15:00 11:46:21 DENTON esparza [facility] 2022-02-07 2022-02-07 Office Jose ANEW [facility] [id number] Univers 11:15:00 11:46:21 Visit Denton GONZALEZ [id number] ity of [place] CARE [id number] [facility] AT [phone] Va jani VILLAGOMEZ [address] [place] [address] 2022-02-06 2022-02-06 Outpatient R JOSE A [facility] [id number] Univers 14:30:00 14:30:00 DENTONEDINSON esparza [facility] 2022-02-02 2022-02-02 [id number] Univers 13:15:00 14:25:06 , GEE sarahkae [facility] 2022-02-02 2022-02-02 Office [facility] [id number] Univers 13:15:00 14:25:06 Visit , Gee GONZALEZ [id number] ity of CARE [id number] [facility] AT [phone] Va jani VILLAGOMEZ [address] [place] [address] 2022-01-23 2022-01-23 Outpatient R DANGELO ZARAGOZA [facility] [id number] Univers 11:00:00 11:00:00 DANGELO ZARAGOZA kae [facility] 2022-01-11 2022-01-11 Outpatient R JOSESHOLA [facility] [id number] Univers 08:00:00 08:00:00 , GEEELADIO esparza [facility] 2022-01-11 2022-01-11 Orders Doctor EDWARD [id number] Univers 00:00:00 00:00:00 Only Unassigned, KAMRAN [id number] ity of [place] [facility] [id number] Bob as [phone] [address] 2021-12-21 2021-12-21 Telephone [facility] [id number] Univers 00:00:00 00:00:00 , Gee SPECIALTY [id number] it[id number] [place] [phone] Va jani VILLAGOMEZ 198 [facility] 2021-12-08 2021-12-08 Outpatient R [facility] [id number] Univers 09:35:00 09:35:00 , GEE ity of [facility] 2021-12-02 2021-12-02 Orders Doctor EDWARD [id number] Univers 00:00:00 00:00:00 Only Unassigned, KAMRAN [id number] ity of [place] [facility] [id number] Bob as [phone] [address] 2021-12-01 2021-12-01 Telephone [facility] [id number] Univers 00:00:00 00:00:00 , Gee PRIMARY [id number] it y [place] [id number] [place] [facility] [phone] Va jani [address] 2021-11-24 2021-11-24 Office [facility] [id number] Univers 11:00:00 12:59:04 Visit , Gee SPECIALTY [id number] it[id number] [place] [phone] Va jani Duran [facility] 2021-11-24 2021-11-24 Outpatient R [facility] [id number] Univers 11:00:00 12:59:04 , GEE ity [facility] 2021-11-24 2021-11-24 Outpatient R [facility] [id number] Univers 11:00:00 11:00:00 , GEE ity [facility] 2021-11-10 2021-11-10 Orders Doctor CHEYANNE [id number] Univers 00:00:00 00:00:00 Only Unassigned, KAMRAN [id number] ity of [place] [facility] [id number] Bob as [phone] [address] 2021-10-27 2021-10-27 Telemedici [facility] [id number] Univers 16:30:00 16:45:00 ne Visit , Gee SPECIALTY [id number] ity of CARE [id number] [facility] AT [phone] Va jani VILLAGOMEZ [address] [facility] 2021-10-27 2021-10-27 Outpatient R [facility] [id number] Univers 16:30:00 16:30:00 , GEE ity [facility] 2021-10-27 2021-10-27 Outpatient R [facility] [id number] Univers 16:30:00 16:30:00 , GEE ity [facility] 2021-09-16 2021-09-16 [facility] [id number] Univers 12:08:41 23:59:00 Encounter , Gee [place] [id number] ity of [place] [id number] [facility] [id number] [facility] [address] 2021-09-16 2021-09-16 Outpatient R [facility] [id number] Univers 12:07:52 12:07:52 , GEE ity [facility] 2021-09-16 2021-09-16 [facility] [id number] Univers 12:07:52 12:07:52 Encounter , Gee [place] [id number] ity of [place] [id number] [facility] [id number] [facility] [address] 2021-09-16 2021-09-16 [facility] [id number] Univers 00:00:00 00:00:00 , Gee PRIMARY [id number] it y of CARE [id number] [facility] [phone] Va dicashvin [address] 2021-09-06 2021-09-06 Outpatient R [facility] [id number] Univers 00:00:00 00:00:00 , GEE ity [facility] 2021-09-01 2021-09-01 [facility] [id number] Univers 13:35:00 23:59:00 Encounter , Gee SPECIALTY [id number] ity of CARE [id number] [facility] AT [phone] Va jani VILLAGOMEZ 809 [facility] 2021-09-01 2021-09-01 [facility] [id number] Univers 00:00:00 23:59:00 , GEE ity [facility] 2021-09-01 2021-09-01 [facility] [id number] Univers 12:45:00 13:44:44 Visit , Gee SPECIALTY [id number] ity of CARE [id number] [facility] CENTER AT [phone] Va kyleashvin VILLAGOMEZ 198 [facility] 2021-09-01 2021-09-01 Outpatient R [facility] [id number] Univers 12:45:00 13:44:44 , GEE ity [facility] 2021-09-01 2021-09-01 Outpatient R [facility] [id number] Univers 12:45:00 13:44:44 , GEE ity [facility] 2021-09-01 2021-09-01 Outpatient R [facility] [id number] Univers 13:37:14 13:37:14 , GEE ity [facility] 2021-09-01 2021-09-01 Outpatient R [facility] [id number] Univers 12:45:00 12:45:00 , GEE ity [facility] 2021-09-01 2021-09-01 Outpatient R [facility] [id number] Univers 12:45:00 12:45:00 , GEE ity [facility] 2021-09-01 2021-09-01 Outpatient R [facility] [id number] Univers 12:45:00 12:45:00 , GEE esparza [facility] 2021-08-29 2021-08-29 Outpatient R JOSE A [facility] [id number] Univers 14:45:00 15:06:13 DENTON esparza [facility] 2021-08-29 2021-08-29 Office Jose A [facility] [id number] Univers 14:45:00 15:00:00 Visit [place] GONZALEZ [id number] ity [facility] [id number] [facility] AT [phone] [address] 2021-08-29 2021-08-29 Outpatient R JOSE A [facility] [id number] Univers 14:45:00 14:45:00 DENTON itkae [facility] [facility] 2021-08-24 2021-08-24 Outpatient R [facility] [id number] Univers 13:13:54 23:59:00 vilma VIEIRA [facility] 2021-08-24 2021-08-24 [facility] [id number] Univers 13:13:54 23:59:00 Encounter REKHA vieira [id number] ity [facility] [id number] [facility] [phone] [facility] 804 [place] 2021-08-24 2021-08-24 Orders Doctor CHEYANNE 1.2.840.114 [id number] Univers 00:00:00 00:00:00 Only Unassigned, KAMRAN [id number] ity of [place] [facility] [id number] Bob as [phone] [facility] 009 [place] 2021-08-19 2021-08-19 Outpatient R [facility] [id number] Univers 00:00:00 00:00:00 vilma VIEIRA [facility] 2021-08-09 2021-08-09 [facility] [id number] Univers 14:20:00 23:59:00 Encounter dariel, SPECIALTY [id number] [place] [facility] [id number] [phone] Va jani VILLAGOMEZ 809 [facility] 2021-08-09 2021-08-09 Office Tenisha [facility] 1.2.840.114 [id number] Univers 16:20:00 16:30:00 Visit Aleks GONZALEZ [id number] ity of [facility] [id number] [phone] Va jani VILLAGOMEZ 198 [facility] 2021-08-09 2021-08-09 Outpatient R TENISHA [facility] [id number] Univers 16:20:00 16:20:00 ALEKS esparza [facility] 2021-08-09 2021-08-09 Outpatient R ELIJAH [facility] [id number] Univers 11:40:00 12:09:18 GINGERMARCkearakae [facility] 2021-08-09 2021-08-09 [facility] 1.2.840.114 [id number] Univers 11:40:00 12:09:18 Visit CARLOS vieira [id number] ity of [facility] [id number] [facility] AT [phone] Va jani VILLAGOMEZ 198 [facility] 2021-08-09 2021-08-09 Outpatient R ARIELYULI [facility] [id number] Univers 11:40:00 12:09:18 JEROMENHANkearakae [facility] 2021-07-29 2021-07-29 Orders Doctor EDWARD 1.2.840.114 [id number] Univers 00:00:00 00:00:00 Only Unassigned, KAMRAN [id number] ity of [place] [facility] [id number] Bob as [phone] [facility] chris [address] [place] [address] 2021-07-07 2021-07-07 Telephone Tenisha [facility] 1.2.840.114 [id number] Univers 00:00:00 00:00:00 Aleks SPECIALTY [id number] ity of [facility] [id number] [facility] CENTER AT [phone] Va jani VILLAGOMEZ 198 [facility] 2021-07-04 2021-07-04 Outpatient R [facility] [id number] Univers 08:41:39 23:59:00 , GEE ity [facility] 2021-07-04 2021-07-04 [facility] 1.2.840.114 [id number] Univers 08:41:39 23:59:00 Encounter , Gee DA SILVA [id number] ity [facility] [id number] [facility] [phone] [address] 2021-07-04 2021-07-04 Outpatient R [facility] [id number] Univers 08:41:39 23:59:00 , GEE ity [facility] 2021-07-04 2021-07-04 Outpatient R [facility] [id number] Univers 00:00:00 00:00:00 , GEEELADIO esparza [facility] 2021-06-30 2021-06-30 [facility]phone [facility] 1.2.840.114 [id number] Univers 00:00:00 00:00:00 Aleks SPECIALTY [id number] ity of [facility] [id number] [facility] AT [phone] Va jani VILLAGOMEZ [address] [place] [address] 2021-06-28 2021-06-28 Office [facility] 1.2.840.114 [id number] Univers 14:00:00 15:12:30 Visit Aleks SPECIALTY [id number] ity of [facility] [id number] [facility] AT [phone] Va jani VILLAGOMEZ [address] [place] [address] 2021-06-28 2021-06-28 Outpatient Margarito STEVEN [facility] [id number] Univers 14:00:00 15:12:30 ALEKS itkae [facility] 2021-06-28 2021-06-28 [facility] [id number] Univers 14:00:00 15:12:30 ALEKS esparza [facility] 2021-06-28 2021-06-28 Outpatient Margarito STEVEN [facility] [id number] Univers 14:00:00 14:00:00 ALEKS esparza [facility] 2021-06-27 2021-06-27 Telephone [facility] 1.2.840.114 [id number] Univers 00:00:00 00:00:00 Aleks SPECIALTY [id number] ity of [facility] [id number] [phone] Va jani VILLAGOMEZ [address] [place] [address] 2021-06-25 2021-06-25 [facility] 1.2.840.114 [id number] Univers 00:00:00 00:00:00 [place] SPECIALTY [id number] [facility] [id number] [phone] Va jani VILLAGOMEZ [address] [place] [address] 2021-06-25 2021-06-25 Telephone [facility] 1.2.840.114 [id number] Univers 00:00:00 00:00:00 Aleks SPECIALTY [id number] ity of [facility] [id number] [phone] Va jani VILLAGOMEZ [address] [place] [address] 2021-06-24 2021-06-24 Outpatient MHIE MHIE [id number] [place]oria 14:00:00 14:00:00 08 joyce [place] 2021-06-24 2021-06-24 Outpatient MHIE MHIE [id number] [place]oria 14:00:00 14:00:00 08 joyce ReisCalvin 2021-06-08 2021-06-08 Telephone [facility] 1.2.840.114 [id number] Univers 00:00:00 00:00:00 Aleks SPECIALTY [id number] ity of [facility] [id number] [phone] Va jani VILLAGOMEZ [address] [place] [address] 2021-06-08 2021-06-08 Telephone [facility] 1.2.840.114 [id number] Univers 00:00:00 00:00:00 Aleks SPECIALTY [id number] ity [facility] [id number] [phone] Va jani Duran [facility] 2021-06-08 2021-06-08 Telephone [facility] 1.2.840.114 [id number] Univers 00:00:00 00:00:00 Aleks S[place] [id number] it y [facility] [id number] [phone] [address] 2021-06-07 2021-06-07 Outpatient [facility] [id number] Univers 10:01:12 23:59:00 DENTONEDINSON esparza [facility] 2021-06-07 2021-06-07 [facility] 1.2.840.114 [id number] Univers 10:01:12 23:59:00 Encounter [place] SPECIAL[facility] [id number] [facility] [id number] [phone] Va jani VILLAGOMEZ 809 [facility] 2021-06-07 2021-06-[address] [facility] [id number] [facility] 10:01:12 23:59:00 DENTON esparza [facility] 2021-06-07 2021-06-07 Office [facility] [id number] Univers 10:15:00 11:04:15 Visit [place] SPECIALTY [id number] [facility] [id number] [phone] Va jani Duran [facility] 2021-06-07 2021-06-[address] [facility] [id number] Univers 10:15:00 11:04:15 [place] itkae [facility] 2021-06-07 2021-06-[address] [facility] [id number] Univers 10:15:00 10:15:00 D[place] esparza [facility] 2021-06-07 2021-06-07 Outpatient Margarito NARANJO [facility] [id number] Univers 10:15:00 10:15:00 DENTON esparza [facility] 2021-05-31 2021-05-31 Outpatient [facility] [id number] Univers 13:53:17 23:59:00 ALEKS esparza [facility] 2021-05-31 2021-05-31 Hospital [facility] [id number] Univers 13:53:17 23:59:00 Encounter Aleks [id number] [facility] [id number] [phone] Va kyleashvin VILLAGOMEZ 809 [facility] 2021-05-31 2021-05-31 Office [facility] 1.2.840.114 [id number] Univers 13:30:00 15:16:33 Visit Aleks [id number] [facility] [id number] [phone] Va kyleashvin VILLAGOMEZ 198 [facility] 2021-05-31 2021-05-31 Outpatient Margarito STEVEN [facility] [id number] Univers 13:30:00 15:16:33 ALEKS esparza [facility] 2021-05-31 2021-05-31 Outpatient [facility] [id number] Univers 13:30:00 13:30:00 ALEKS esparza [facility] 2021-05-31 2021-05-31 Orders Doctor EDWARD 1.2.840.114 [id number] Univers 00:00:00 00:00:00 Only Unassigned, KAMRAN [id number] ity [facility] [id number] Bob as [phone] [address] 2021-05-13 2021-05-13 Outpatient MHIE PANDA [id number] Memoria 16:00:00 16:00:00 07 joyce Simpson 2021-05-13 2021-05-13 Outpatient MHIE MHIE [id number] [facility]oria 16:00:00 16:00:00 07 joyce Simpson 2021-03-31 2021-03-31 Outpatient MHIE MHIE [id number] [facility] 16:00:00 16:00:00 06 joyce Simpson 2021-03-31 2021-03-31 Outpatient MHIE MHIE [id number] [facility] 16:00:00 16:00:00 06 joyce Simpson 2021-03-04 2021-03-04 Outpatient MHIE MHIE [id number] [facility] 13:45:00 13:45:00 05 joyce Simpson 2021-03-04 2021-03-04 Outpatient MHIE MHIE [id number] [facility] 13:45:00 13:45:00 05 joyce Simpson 2021-01-21 2021-01-21 Outpatient MHIE MHIE [id number] [facility] 13:45:00 13:45:00 04 joyce Simpson 2021-01-21 2021-01-21 Outpatient MHIE MHIE [id number] [facility] 13:45:00 13:45:00 04 joyce Simpson 2020-12-10 2020-12-10 Outpatient MHIE MHIE [id number] [facility] 08:15:00 08:15:00 01 joyce Simpson 2020-12-10 2020-12-10 Outpatient MHIE MHIE [id number] [facility] 08:15:00 08:15:00 01 joyce Simpson 2020-11-12 2020-11-12 Outpatient MHIE MHIE [id number] [facility] 15:00:00 15:00:00 03 joyce Simpson 2020-11-12 2020-11-12 Outpatient MHIE MHIE [id number] [facility] 15:00:00 15:00:00 03 joyce Simpson 2020-11-10 2020-11-10 Outpatient MHIE MHIE [id number] [facility] 13:45:00 13:45:00 02 joyce Simpson 2020-11-10 2020-11-10 Outpatient MHIE MHIE [id number] [facility] 13:45:00 13:45:00 02 joyce Simpson 2020-10-29 2020-10-29 Outpatient MHIE MHIE [id number] [facility] 15:30:00 15:30:00 00 joyce Simpson 2020-10-29 2020-10-29 Outpatient COLBY BOWMAN [id number] Memoria 15:30:00 15:30:00 00 l Calvin 2020-09-13 2020-09-13 Outpatient ERICKSON_R [facility] [id number] [place] 01:02:00 01:02:00 [facility] 2020-05-31 2020-05-31 Outpatient ERICKSON_R [facility] [id number] [place] 01:03:00 01:03:00 [facility] 2020-05-14 2020-05-14 Outpatient ERICKSON_R [facility] [id number] [place] 12:03:00 12:03:00 [facility] 2020-04-26 2020-04-26 Outpatient ERICKSON_R [facility] [id number] [place] 01:03:00 01:03:00 228 [facility] 2020-04-25 2020-04-25 Emergency [facility] 1.2.840.114 [id number] Univers 18:15:00 23:38:00 Marquita Da Silva [id number] [facility] [id number] [facility] [phone] [address] 2020-04-25 2020-04-25 Emergency [facility] 1.2.840.114 [id number] 18:15:00 23:38:00 Marquita Da Silva [id number] [place] [id number] [place] [id number] [facility] 2020-04-25 2020-04-25 Emergency X [facility] E[facility] [id number] Univers 18:15:00 18:15:00 MARQUITA esparza [facility] 2019-03-30 2019-03-30 Emergency E MHKM MHKM [id number] [place] 00:33:00 00:33:00 joyce Tucker l Results This patient has no known results.
--- NOTE | 2022-07-17 20:18 | RAD REPORT ---
EXAM DESCRIPTION: RAD - Lumbar Spine 3 Views - 07/17/2022 8:07 pm CLINICAL HISTORY: Back pain FINDINGS: No fracture or dislocation Osteoporosis Mild spondylosis involves the spine. Mild chronic posterior subluxation L3 on L4. Mild chronic anterior subluxation L4 on L5
--- NOTE | 2022-07-17 20:19 | RAD REPORT ---
EXAM DESCRIPTION: RAD - Thoracic Spine Ap/Lat - 07/17/2022 8:07 pm CLINICAL HISTORY: Back pain FINDINGS: No fracture or dislocation Mild spondylosis
--- NOTE | 2022-07-17 21:07 | EDPHYS ---
Physician Documentation [facility] Name: Marya Ching Age: 66 yrs Sex: Female : 1955 Arrival Date: 07/17/2022 Time: 19:02 Bed 14 Private MD: ED Physician Carlie Gomez HPI: 07/17 21:02 This 66 yrs old Female presents to ER via Wheelchair with complaints of Fall Injury. sp3 21:02 66-year-old female with a history of ascending aortic aneurysm, COPD, diverticulosis sp3 now presents to the ED with chief complaint mid to lower back pain secondary to mechanical ground-level fall in her kitchen without injury to her head. Patient is also had neck fusion in the past but currently complains of no change in that baseline pain level. Patient was working in her kitchen when she turned around and "lost her balance" and fell and hit the counter and then subsequently hit the floor. She denies any head injury, exacerbation of her neck, chest pain, abdominal pain, extremity pain, bleeding, syncope, near syncope, or any other symptoms on ROS at this time.. Historical: - Allergies: 19:14 Aspirin; as6 19:14 Phenobarbital; as6 19:14 Charadona; as6 - PMHx: 19:14 ascending aortic anuerysm; colon surgery; COPD; diverticulosis; as6 - Immunization history:: Client reports receiving the 2nd dose of the Covid vaccine, moderna. - Social history:: Smoking status: Patient/guardian denies using tobacco. ROS: 21:03 Constitutional: Negative for fever, chills, and weight loss, Eyes: Negative for injury, sp3 pain, redness, and discharge, ENT: Negative for injury, pain, and discharge, Neck: Negative for injury, pain, and swelling, Cardiovascular: Negative for chest pain, palpitations, and edema, Respiratory: Negative for shortness of breath, cough, wheezing, and pleuritic chest pain, Abdomen/GI: Negative for abdominal pain, nausea, vomiting, diarrhea, and constipation, Skin: Negative for injury, rash, and discoloration, Neuro: Negative for headache, weakness, numbness, tingling, and seizure. 21:03 All other systems are negative. Exam: 21:03 Constitutional: This is a well developed, well nourished patient who is awake, alert, sp3 and in no acute distress. Head/Face: Normocephalic, atraumatic. Eyes: Pupils equal round and reactive to light, extra-ocular motions intact. Lids and lashes normal. Conjunctiva and sclera are non-icteric and not injected. Cornea within normal limits. Periorbital areas with no swelling, redness, or edema. Neck: Trachea midline, no thyromegaly or masses palpated, and no cervical lymphadenopathy. Supple, full range of motion without nuchal rigidity, or vertebral point tenderness. No Meningismus. Chest/axilla: Normal chest wall appearance and motion. Nontender with no deformity. No lesions are appreciated. Cardiovascular: Regular rate and rhythm with a normal S1 and S2. No gallops, murmurs, or rubs. Normal PMI, no JVD. No pulse deficits. Respiratory: Lungs have equal breath sounds bilaterally, clear to auscultation and percussion. No rales, rhonchi or wheezes noted. No increased work of breathing, no retractions or nasal flaring. Abdomen/GI: Soft, non-tender, with normal bowel sounds. No distension or tympany. No guarding or rebound. No evidence of tenderness throughout. Skin: Warm, dry with normal turgor. Normal color with no rashes, no lesions, and no evidence of cellulitis. Neuro: Awake and alert, GCS 15, oriented to person, place, time, and situation. Cranial nerves II-XII grossly intact. Motor strength 5/5 in all extremities. Sensory grossly intact. Cerebellar exam normal. Normal gait. 21:03 Back: Ecchymoses with approximately 8 cm x 4 cm in her lower thoracic spine without bony tenderness or prominences. Patient is tender to the musculature in the surrounding areas. Neurological function in her lower extremities is at baseline and normal. Patient is ambulatory.. Vital Signs: 19:10 BP 133 / 80; Pulse 89; Resp 18 S; Temp 98(O); Pulse Ox 94% on R/A; Weight 104.33 kg as6 (R); Height 5 ft. 3 in. (R); Pain 7/10; 20:30 BP 130 / 79; Pulse 85; Resp 16; Pulse Ox 100% ; pf1 21:30 BP 141 / 70; Pulse 82; Resp 16; Pulse Ox 100% ; pf1 19:10 Body Mass Index 40.74 (104.33 kg, 160.02 cm) as6 19:10 Pain Scale: Adult as6 MDM: 19:23 Patient medically screened. sp3 21:04 Data reviewed: vital signs, nurses notes, radiologic studies. ED course: 66-year-old sp3 female with contusions to the mid and lower back without any other secondary injury. X-rays of the thoracic spine and lumbar spine demonstrate mild arthritis without any evidence of acute mechanical or traumatic injury. She has normal neurological exam. At this time we will treat her pain with 2 mg of Dilaudid intramuscularly secondary to her prior exposure to narcotic medication demonstrating a high tolerance. We will discharge patient home on muscle relaxer with continued use of her Tylenol 3 that she has at home. Patient has follow-up with the neurologist in 2 days for routine visit.. 07/17 19:27 Order name: Lumbar Spine (3 Views) XRAY; Complete Time: 21:01 sp3 07/17 19:27 Order name: Spine Thoracic Ap/Lat XRAY; Complete Time: 21:01 sp3 Administered Medications: 21:30 Drug: HYDROmorphone IM 2 mg Route: IM; Site: left gluteus; pf1 22:10 Follow up: Response: No adverse reaction; Marked relief of symptoms; Pain is decreased pf1 Disposition Summary: 07/17/22 21:06 Discharge Ordered Location: Home sp3 Condition: Stable sp3 Diagnosis - Back contusion sp3 Followup: sp3 - With: Private Physician - When: Upon discharge from the Emergency Department - Reason: Continuance of care Discharge Instructions: - Discharge Summary Sheet sp3 - Contusion sp3 Forms: - Medication Reconciliation Form sp3 - Thank You Letter sp3 - Antibiotic Education sp3 - Prescription Opioid Use sp3 Prescriptions: - Cyclobenzaprine 5 mg Oral Tablet - take 1 tablet by ORAL route 3 times per day As needed; 15 tablet; Refills: 0, sp3 Product Selection Permitted Signatures: Dispatcher [employer] EDMS Carlie Gomez MD MD sp3 Chris Arauz RN RN as6 Gypsy gray RN RN pf1
--- NOTE | 2022-07-17 21:07 | ER ---
Nurse's Notes [facility] Name: Marya Ching Age: 66 yrs Sex: Female : 1955 Arrival Date: 07/17/2022 Time: 19:02 Bed 14 Private MD: Diagnosis: Back contusion Presentation: 07/17 19:10 Chief complaint: Patient states: "I fell last night and now my back hurts". Coronavirus as6 screen: At this time, the client does not indicate any symptoms associated with coronavirus-19. Ebola Screen: No symptoms or risks identified at this time. Initial Sepsis Screen: Does the patient meet any 2 criteria? No. Patient's initial sepsis screen is negative. Does the patient have a suspected source of infection? No. Patient's initial sepsis screen is negative. Risk Assessment: Do you want to hurt yourself or someone else? Patient reports no desire to harm self or others. Onset of symptoms was July 16, 2022. 19:10 Method Of Arrival: Wheelchair as6 19:10 Acuity: BERNARDO 3 as6 Triage Assessment: 19:15 General: Appears uncomfortable, Behavior is calm, cooperative. Pain: Complains of pain as6 in back. Musculoskeletal: Reports pain in back. Historical: - Allergies: 19:14 Aspirin; as6 19:14 Phenobarbital; as6 19:14 Charadona; as6 - PMHx: 19:14 ascending aortic anuerysm; colon surgery; COPD; diverticulosis; as6 - Immunization history:: Client reports receiving the 2nd dose of the Covid vaccine, moderna. - Social history:: Smoking status: Patient/guardian denies using tobacco. Screenin:30 [facility] ED Fall Risk Assessment (Adult) History of falling in the last 3 months, pf1 including since admission Yes- single mechanical fall (1 pt) Confusion or Disorientation No (0 pts) Intoxicated or Sedated No (0 pts) Impaired Gait No (0 pts) Mobility Assist Device Used No (0 pt) Altered Elimination No (0 pt) Score/Fall Risk Level 0 - 2 = Low Risk Oriented to surroundings, Maintained a safe environment, Educated pt \\T\\ family on fall prevention, incl call for assistance when getting out of bed, Assessed \\T\\ reinforced patient's understanding of fall precautions, Provided non-skid footwear, Hourly rounding (assess needs \\T\\ fall precautionary measures) done, Used ambulatory aids as needed (educated on \\T\\ assisted with), Used gait belt as appropriate. 20:30 Abuse screen: Denies threats or abuse. Nutritional screening: No deficits noted. pf1 Tuberculosis screening: No symptoms or risk factors identified. Assessment: 20:28 General: Appears in no apparent distress. uncomfortable, well groomed, well developed, pf1 Behavior is calm, cooperative, appropriate for age, quiet. 20:28 Pain: Complains of pain in back. Neuro: No deficits noted. Level of Consciousness is pf1 awake, alert, obeys commands, Oriented to person, place, time, situation. Cardiovascular: No deficits noted. Respiratory: No deficits noted. Airway is patent Respiratory effort is even, unlabored, Respiratory pattern is regular, symmetrical. GI: No deficits noted. No signs and/or symptoms were reported involving the gastrointestinal system. : No deficits noted. No signs and/or symptoms were reported regarding the genitourinary system. EENT: No deficits noted. No signs and/or symptoms were reported regarding the EENT system. Derm: No deficits noted. No signs and/or symptoms reported regarding the dermatologic system. Musculoskeletal: Reports pain in back. 21:30 Reassessment: Patient appears in no apparent distress at this time. Patient and/or pf1 family updated on plan of care and expected duration. Pain level reassessed. Patient is alert, oriented x 3, equal unlabored respirations, skin warm/dry/pink. Patient states symptoms have improved. Vital Signs: 19:10 BP 133 / 80; Pulse 89; Resp 18 S; Temp 98(O); Pulse Ox 94% on R/A; Weight 104.33 kg as6 (R); Height 5 ft. 3 in. (R); Pain 7/10; 20:30 BP 130 / 79; Pulse 85; Resp 16; Pulse Ox 100% ; pf1 21:30 BP 141 / 70; Pulse 82; Resp 16; Pulse Ox 100% ; pf1 19:10 Body Mass Index 40.74 (104.33 kg, 160.02 cm) as6 19:10 Pain Scale: Adult as6 ED Course: 19:02 Patient arrived in ED. rg4 19:14 Triage completed. as6 19:15 Arm band placed on. as6 19:16 Gomez, Setul, MD is Attending Physician. sp3 20:09 Lumbar Spine (3 Views) XRAY In Process Unspecified. EDMS 20:09 Spine Thoracic Ap/Lat XRAY In Process Unspecified. EDMS 20:30 Bed in low position. Call light in reach. pf1 20:30 No provider procedures requiring assistance completed. pf1 22:10 Patient did not have IV access during this emergency room visit. pf1 Administered Medications: 21:30 Drug: HYDROmorphone IM 2 mg Route: IM; Site: left gluteus; pf1 22:10 Follow up: Response: No adverse reaction; Marked relief of symptoms; Pain is decreased pf1 Medication: 22:10 VIS not applicable for this client. pf1 Outcome: 21:06 Discharge ordered by . sp3 22:12 Discharged to home via wheelchair, with family. pf1 22:12 Condition: stable 22:12 Discharge instructions given to patient, family, Instructed on discharge instructions, follow up and referral plans. Demonstrated understanding of instructions, follow-up care, medications, Prescriptions given X 1. 22:13 Patient left the ED. pf1 Signatures: Dispatcher [employer] Keren Vasques rg4 Carlie Gomez MD MD sp3 Chris Arauz, MICHELLE RN as6 Gypsy gray, RN RN pf1
[2022-07-17] MEDS ORDERED: HYDROMORPHONE HCL 2 MG/ML inj ONE (21:45)
[2022-07-18 07:31] VITALS: BP 133/80; TEMP 98; O2SAT 94
== END 2022-07-17 22:13 | disposition home or self-care (01) ==
LOC: ER 18:56
DX: S30.0XXA Contusion of lower back and pelvis, initial encounter (principal)
CPT/HCPCS: 72100; 72070; J1170

== ENCOUNTER 2022-10-27 06:33 | Day surgery (SDC) | payer OTHER ==
--- NOTE | 2022-10-24 09:26 | RAD REPORT ---
EXAM DESCRIPTION: RAD - Chest Pa And Lat (2 Views) - 10/24/2022 9:08 am CLINICAL HISTORY: pre op for surgey Chest pain. COMPARISON: Chest Single View dated 10/25/2020; Chest Single View dated 10/15/2020; Chest Pa And Lat ( 2 Views) dated 08/04/2020 TECHNIQUE: PA and lateral views of the chest were obtained. FINDINGS: The lungs are hyperexpanded compatible with COPD. The heart is upper limit of normal in si ze. No fracture or aggressive bony process. Cervical hardware plate noted. IMPRESSION: COPD without acute process identified. The USPSTF recommends annual screening for lung cancer with low-dose CT (LDCT) in adults aged 50 to 8 0 years who have a 20 pack-year smoking history and currently smoke or have quit within the past 15 y ears.
[2022-10-24 09:46] LABS: Absolute Lymphocytes (CBC) 1.6 K/uL (0.7-4.9); Hematocrit 41.6 % (36.0-45.0); Lymphocytes % 27.5 % (15.3-44.8); MCV 93.1 fL (80-100); MPV 10.1 fL (7.6-11.3); RBC Red Blood Cell Count 4.47 M/uL (3.86-4.86)
[2022-10-24 09:54] LABS: Protime INR 0.92
[2022-10-24 09:59] LABS: Potassium 4.1 mEq/L (3.5-5.1)
--- NOTE | 2022-10-24 20:35 | EKG ---
Test Date: 2022-10-24 Test Time: 08:52:39 Tuyere Fitter: ERIKA MEASUREMENT RESULTS: Intervals: Rate: 80 HI: 132 QRSD: 124 QT: 422 QTc: 486 [place]: P: 56 HI: 132 QRS: -52 T: 44 INTERPRETIVE STATEMENTS: Normal sinus rhythm Right bundle branch block Left anterior fascicular block Bifascicular block Moderate voltage criteria for LVH, may be normal variant Possible Lateral infarct, age undetermined Abnormal ECG Compared to ECG 10/25/2020 21:34:34 Left anterior fascicular block now present Bifascicular block now present Myocardial infarct finding now present Left-axis deviation no longer present Electronically Signed On 10-24-22 20:32:43 CDT by Juanito Blanc
[2022-10-27] MEDS ORDERED: Ringers Lactate 1,000 ML IV ONE (07:08)
[2022-10-27] MEDS ORDERED: CEFAZOLIN SODIUM 1 GM/VIAL ONE (07:08)
[2022-10-27] MEDS ORDERED: propofoL 200 MG/20 ML VIAL IV ONE (07:36)
[2022-10-27] MEDS ORDERED: MIDAZOLAM HCL 2 MG/2 ML INJ ONE (07:36)
[2022-10-27] MEDS ORDERED: FENTANYL CITR 100 MCG/2 ML ONE (07:36)
[2022-10-27] MEDS ORDERED: KETOROLAC 30 MG/ML INJ ONE (07:36)
[2022-10-27] MEDS ORDERED: ONDANSETRON 4 MG/2 ML VIAL ONE (07:36)
[2022-10-27] MEDS ORDERED: dexAMETHasone 10 MG/ML VIAL ONE (07:36)
[2022-10-27] MEDS ORDERED: LIDOCAINE 2% MPF 5 ML VIAL ONE (07:38)
[2022-10-27] MEDS ORDERED: BUPIVACAINE 0.25% PF 10 ML VIAL ONE (07:45)
[2022-10-27] MEDS ORDERED: NA CIT/CITRIC AC 30 ML ORAL UDC ONE (08:17)
[2022-10-27] MEDS ORDERED: EPHEDRINE SULF 50 MG/ML VIAL ONE (08:44)
--- NOTE | 2022-10-27 09:24 | P.BOP ---
Preoperative diagnosis: right knee medial meniscus tear, right knee osteoarthritis Postoperative diagnosis: same Primary procedure: right knee arthroscopic partial medial meniscectomy Switching Clerk: NONE,NONE Estimated blood loss: 5 cc Specimen: none Findings: see dictation Anesthesia: General Complications: None Implants: none Fluids & blood products: per anesthesia record; TT: 11 mins @ 300 mmHg Transferred to: Recovery Room Condition: Good
[2022-10-27] MEDS: HYDROMORPHONE HCL 1 MG/ML INJ ONE ×2 (09:30→09:35)
[2022-10-27] MEDS: FENTANYL CITR 100 MCG/2 ML ONE ×3 (09:37→09:47)
[2022-10-27 09:42] VITALS: O2SAT 93
[2022-10-27 12:25] VITALS: TEMP 97.3
[2022-10-27 12:27] VITALS: BP 128/68
--- NOTE | 2022-10-27 20:46 | OP ---
Date of Procedure: 10/27/2022 Surgeon: Marcus Constantino MD Preoperative Diagnoses: 1.Right knee medial meniscus tear. 2.Right knee osteoarthritis. Postoperative Diagnoses: 1.Right knee medial meniscus tear. 2.Right knee osteoarthritis. Procedure Performed: Right knee arthroscopic partial medial meniscectomy. Anesthesia: General LMA. Fluids: Per Anesthesia record. Estimated Blood Loss: 5 cc. Complications: None. Implants: None. Tourniquet Time: 10 minutes at 300 mmHg. Indication For Procedure: Marya is a 66-year-old female who presented to my clinic with signs, symptom s, and MRI findings consistent with a right knee medial meniscus tear as well as underlying osteoarth ritis. Discussed the patient at length risks and benefits associated with operative and nonoperative treatment. She expressed understanding and elected to proceed with operative treatment. Description Of Procedure: After informed consent was obtained, the patient was identified in the pre operative holding area. The right lower extremity was marked. Patient then brought back to the oper ating room, transferred to the operating room table in supine fashion, and placed under general LMA a nesthesia. The right lower extremity was then prepped and draped in usual sterile fashion. A time-o ut was initiated. The correct patient and procedure were confirmed and identified. Patient did rece ketty her preoperative prophylactic antibiotics. The right lower extremity was exsanguinated using an Esmarch. The tourniquet was inflated to 300 mmHg. Standard anteromedial and anterolateral portals w ere created. The arthroscope was then brought in via the anterolateral portal and diagnostic arthros copy was performed. Patient was then noted to have some grade 3 chondromalacia changes of the unders urface of the patella as well as trochlear groove. The arthroscope was then brought into both medial and lateral gutters. There were no loose bodies within the gutters. The arthroscope was then broug ht in the medial compartment. Patient was noted to have some grade 3 chondromalacic changes of the m edial femoral condyle, which was diffuse in nature, as well as, some grade 2 and 3 changes of the med ial tibial plateau. There was a complex tear of the posterior horn of the medial meniscus. A partia l medial meniscectomy was performed using meniscal biters and arthroscopic shaver to smooth meniscal borders. The arthroscope was then brought into the intercondylar notch where patient was noted to fajardo ve an intact ACL and PCL which were stable to probe. The arthroscope was then brought in the lateral compartment where the patient was noted to have pristine cartilage of the lateral femoral condyle an d lateral tibial plateau. The lateral meniscus was intact and stable to probe without tear noted. A rthroscopic instruments were then removed without complication. Wounds were then irrigated thoroughl y with normal saline. Skin was approximated using a 4-0 Monocryl. Sterile dressings were applied. The patient was awakened and transferred to PACU in stable condition. Postoperative Plan: The patient will be weightbearing as tolerated in right lower extremity. Physic al Therapy will be consulted today with mobilization. She will follow up in 1 week for wound check. CV/MODL Voice ID: [id number] Report ID: [id number]
== END 2022-10-27 11:35 | disposition home or self-care (01) ==
LOC: OR 06:33
PROVIDERS: ATTEND Orthopaedic Surgery Sports Medicine
PROC: 0SBC4ZZ Excision of Right Knee Joint, Percutaneous Endoscopic Approach (ICD-10-PCS; principal; 2022-10-27 08:00)
DX: S83.241A Other tear of medial meniscus, current injury, right knee, initial encounter (principal); M17.11 Unilateral primary osteoarthritis, right knee
CPT/HCPCS: 93005; 85025; 80048; 36415; 85610; 85730; 71046; 29881; J2704; J2001; J2250; J3010 ×2; J1100; J1170; J2405; J7120; J0690

== ENCOUNTER 2024-08-08 16:56 | Emergency (ER) | payer OTHER ==
--- NOTE | 2024-08-08 19:18 | RAD REPORT ---
EXAM: CT brain without contrast HISTORY: Dizziness;Headache COMPARISON: 10/15/2020 TECHNIQUE: Multiple contiguous axial images were obtained and a CT of the brain without contrast. Sag ittal and coronal reformats were performed. One or more of the following dose reduction techniques were used: Automated exposure control, adjust ment of the mA and/or kV according to patient size, and/or iterative reconstruction. FINDINGS: No evidence of hydrocephalus, intracranial hemorrhage, or extra-axial fluid collection. The brain is normal in morphology. No evidence of midline shift or areas of brain edema. The calvarium is intact. The visualized paranasal sinuses and mastoid air cells are essentially clear . IMPRESSION: No evidence of acute intracranial abnormality.
[2024-08-08] MEDS ORDERED: NA CHLORIDE 0.9% 1,000 ML ONE (20:29)
[2024-08-08 20:47] LABS: Specific Gravity 1.022 (1.005-1.030); Urine Bacteria <20 /HPF (<20); Urine Bilirubin NEGATIVE (Negative); Urine Blood Negative (Negative); Urine Clarity Extremely Turbid (Clear); Urine Color Yellow (Yellow); Urine Culture Reflex Order NOT NEEDED; Urine Glucose NEGATIVE (Negative); Urine Ketones NEGATIVE (Negative); Urine Microscopic Reflex YN ORDER UMIC; Urine Mucus Slight /HPF (None Seen); Urine Nitrite NEGATIVE (Negative); Urine Protein NEGATIVE (Negative); Urine Urobilinogen 1+ (Normal); Urine WBC <5 /HPF (<5); Urine Yeast (Budding) Trace /HPF (None Seen); Urine pH 5.5 (5.0-7.0)
[2024-08-08] MEDS ORDERED: CLOPIDOGREL 75 MG TABLET ONE (20:50)
--- NOTE | 2024-08-08 21:42 | RAD REPORT ---
EXAMINATION: CAROTID DUPLEX ULTRASOUND CLINICAL INDICATION: PAIN TECHNIQUE: Real-time grayscale, color flow and spectral Doppler sonographic images were obtained of t he extracranial carotid system using a linear transducer. COMPARISON: No prior exam. FINDINGS: RIGHT: Common carotid artery: 85 cm/s Internal carotid artery: 148 cm/s External carotid artery: 128 cm/s Right ICA/CCA ratio: 2.2 Plaque: Mild hard plaque is present proximal right ICA/distal CCA Vertebral artery Antegrade LEFT: Common carotid artery: 107 cm/s Internal carotid artery: 87 cm/s External carotid artery: 110 cm/s Left ICA/CCA ratio: 1.2 Plaque: Moderate hard plaque is present left carotid bulb. Vertebral artery Antegrade IMPRESSION: Moderate hard plaque left carotid bulb resulting in estimated at 70% The degrees of stenosis, if any, are quantified according to the consensus statement of the Society o f Radiologists in Ultrasound (SRUS). Please refer to Donta E, Wander C, Sudheer G et al. Carotid Artery Stenosis: Mckinney-Scale and Doppler US Diagnosis--Society of Radiologists in Ultrasound Consensus Conference. Radiology. 2003;229(2):340-6.
[2024-08-08 22:11] LABS: Absolute Basophils 0.1 K/uL (0-0.5); Absolute Eosinophils 0.5 K/uL (0-0.5); Absolute Lymphocytes (CBC) 1.5 K/uL (0.7-4.9); Absolute Monocytes 0.5 K/uL (0.1-1.3); Absolute Neutrophil 2.9 K/uL (1.8-8.0); Basophils % 1.9 % (0-1.3); Eosinophils % 8.7 % (0-4.4); Hemoglobin 13.5 g/dL (12.0-15.0); Lymphocytes % 27.1 % (15.3-44.8); MCHC 33.6 g/dL (32.0-36.0); MCV 92.1 fL (80-100); MPV 9.6 fL (7.6-11.3); Monocytes % 8.5 % (3.3-12.3); Neutrophils % 53.8 % (41.7-73.7); Nucleated Red Blood Cells % 0.1 % (0-0); Platelets 224 thou/uL (152-406); RBC Red Blood Cell Count 4.34 M/uL (3.86-4.86); Red Cell Distribution Width 15.2 % (12.1-15.2)
[2024-08-08 22:16] LABS: PT Prothrombin Time 10.9 SECONDS (10-13.0); Protime INR 0.95
[2024-08-08 22:36] LABS: ALT/SGPT 29 U/L (13-56); AST/SGOT 22 U/L (15-37); Albumin 3.7 g/dL (3.4-5.0); Albumin/Globulin Ratio 1.1 (1.1-1.8); Alkaline Phosphatase 110 U/L (45-117); Anion Gap 6.9 mEq/L (5.0-15.0); BUN Blood Urea Nitrogen 9 mg/dL (7-18); Bicarbonate 29 mEq/L (21-32); Bilirubin Direct < 0.2 mg/dL (0-0.2); Bilirubin Total 0.2 mg/dL (0.2-1.0); Globulin 3.4 g/dL (2.3-3.5); Glomerular Filtration Rate 89 ml/min (=/>90); Glucose Level 94 mg/dL (74-106); Magnesium 2.1 mg/dL (1.6-2.4); NT PRO-BNP 210 pg/mL (<125); Potassium 3.9 mEq/L (3.5-5.1); Protein, Total 7.1 g/dL (6.4-8.2); Sodium Level 139 mEq/L (136-145); Troponin High Sensitivity 3.9 pg/mL (<58.9)
[2024-08-09] MEDS ORDERED: ONDANSETRON 4 MG/2 ML VIAL ONE (00:10)
[2024-08-09] MEDS ORDERED: MORPHINE 4 MG/ML SYR ONE (00:12)
--- NOTE | 2024-08-09 01:11 | RAD REPORT ---
CT CHEST ABDOMEN PELVIS ANGIOGRAPHY WITH IV CONTRAST CLINICAL INDICATIONS: Pain COMPARISON: None TECHNIQUE: CT images of the chest, abdomen and pelvis were obtained during arterial phase following a dministration of intravenous contrast. Multiplanar MIP and MPR reformats were provided. Dose lowering techniques such as automated exposure control, iterative reconstruction, and mA and/or kV ad justment for patient size was utilized for this examination. CHEST FINDINGS: LOWER NECK: Unremarkable. AIRWAYS: Trachea and mainstem bronchi are patent. LUNGS/PLEURA: Lungs are clear. No focal air space consolidation. No discrete mass or nodules. No pleu ral effusions or pneumothorax. VASCULATURE: No evidence of thoracic aortic aneurysm or dissection. Moderate atherosclerotic calcific ations of the thoracic aorta. No large or central pulmonary embolism. MEDIASTINUM/NODES: No pathologic adenopathy. HEART: Normal heart size. No pericardial effusion. CHEST WALL: Unremarkable. BONES: No acute or significant abnormality. ABDOMEN/PELVIS FINDINGS: LIVER: Unremarkable. BILIARY: Unremarkable. PANCREAS: Unremarkable. SPLEEN: Unremarkable. ADRENALS: Unremarkable. KIDNEYS/URETERS: Unremarkable. STOMACH: Small hiatal hernia. BOWEL: Unremarkable. APPENDIX: Appendix is not visualized. No focal inflammation in right lower quadrant to suggest acute appendicitis. MESENTERY/PERITONEUM: Unremarkable. RETROPERITONEUM: No adenopathy. URINARY BLADDER: Unremarkable. REPRODUCTIVE: Uterus is not visualized. VASCULAR: No aortic aneurysm or dissection. Moderate atherosclerotic calcifications of the abdominal and pelvic vasculature. ABDOMINAL/PELVIC WALL: Tiny fat containing umbilical hernia. BONES: Mild multilevel degenerative changes of lumbar spine. No compression deformity, nor osteolytic or sclerotic lesion. IMPRESSION: No acute findings in CT chest, abdomen and pelvis. Electronically signed by: Maru Leigh MD 08/09/2024 01:05 AM [facility] Due to temporary technical issues with the PACS/centrose reporting system, reports are being alonso d by the in-house radiologist without review as a courtesy to ensure prompt reporting the interpreting radiologist is fully responsible for the content of the report. Transcribed Date/Time: 08/09/2024 1:11 AM
--- NOTE | 2024-08-09 01:23 | ER ---
Nurse's Notes [facility] [place] Name: Marya Ching Age: 68 yrs Sex: Female : 1955 Arrival Date: 08/08/2024 Time: 16:56 Bed 12 Private MD: Diagnosis: Dizziness and giddiness;Headache;COPD/ Chronic obstructive pulmonary disease, unspecified;Obesity, unspecified Presentation: 08/08 17:20 Chief complaint: Intermittent dizziness, headache, nausea, and feeling shaky x 4 days. hb Coronavirus screen: At this time, the client does not indicate any symptoms associated with coronavirus-19. Ebola Screen: No symptoms or risks identified at this time. Initial Sepsis Screen: Does the patient meet any 2 criteria? No. Patient's initial sepsis screen is negative. Does the patient have a suspected source of infection? No. Patient's initial sepsis screen is negative. Risk Assessment: Do you want to hurt yourself or someone else? Patient reports no desire to harm self or others. Onset of symptoms was August 05, 2024. 17:20 Method Of Arrival: Ambulatory hb 17:20 Acuity: BERNARDO 3 hb Historical: - Allergies: 17:23 Aspirin; hb 17:23 [place]; hb 17:23 Phenobarbital; hb - PMHx: 17:23 ascending aortic anuerysm; colon surgery; COPD; diverticulosis; hb - Immunization history:: Adult Immunizations up to date. - Infectious Disease History:: Denies. - Social history:: Smoking status: Patient denies any tobacco usage or history of. - Family history:: not pertinent. Screenin:18 [facility] ED Fall Risk Assessment (Adult) History of falling in the last 3 months, kj2 including since admission No falls in past 3 months (0 pts) Confusion or Disorientation No (0 pts) Intoxicated or Sedated No (0 pts) Impaired Gait No (0 pts) Mobility Assist Device Used No (0 pt) Altered Elimination No (0 pt) Score/Fall Risk Level 0 - 2 = Low Risk Maintained a safe environment, Hourly rounding (assess needs \T\ fall precautionary measures) done. Abuse screen: Denies threats or abuse. Denies injuries from another. Nutritional screening: No deficits noted. Tuberculosis screening: No symptoms or risk factors identified. Assessment: 20:16 General: Appears in no apparent distress. Behavior is cooperative. Pain: Complains of kj2 pain in headache Pain currently is 4 out of 10 on a pain scale. Neuro: Level of Consciousness is awake, alert, Oriented to person, place, time, situation. Cardiovascular: Patient's skin is warm and dry. Respiratory: Airway is patent Respiratory effort is even, unlabored. GI: No signs and/or symptoms were reported involving the gastrointestinal system. : No signs and/or symptoms were reported regarding the genitourinary system. 21:15 Reassessment: Patient appears in no apparent distress at this time. Patient and/or kj2 family updated on plan of care and expected duration. Pain level reassessed. Patient is alert, oriented x 3, equal unlabored respirations, skin warm/dry/pink. 22:15 Reassessment: Patient appears in no apparent distress at this time. Patient and/or kj2 family updated on plan of care and expected duration. Pain level reassessed. Patient is alert, oriented x 3, equal unlabored respirations, skin warm/dry/pink. 23:05 Reassessment: Patient appears in no apparent distress at this time. Patient and/or kj2 family updated on plan of care and expected duration. Pain level reassessed. Patient is alert, oriented x 3, equal unlabored respirations, skin warm/dry/pink. 08/09 00:19 Reassessment: Patient appears in no apparent distress at this time. Patient and/or kj2 family updated on plan of care and expected duration. Pain level reassessed. Patient is alert, oriented x 3, equal unlabored respirations, skin warm/dry/pink. 01:31 Reassessment: Patient appears in no apparent distress at this time. Patient and/or lg3 family updated on plan of care and expected duration. Pain level reassessed. Patient is alert, oriented x 3, equal unlabored respirations, skin warm/dry/pink. Vital Signs: 08/08 17:20 BP 101 / 78; Pulse 74; Resp 18; Temp 98.2(O); Pulse Ox 96% ; Weight 95.25 kg; Height 5 hb ft. 3 in. ; Pain 0/10; 21:15 BP 104 / 76; Pulse 72; Resp 18; Pulse Ox 100% on R/A; kj2 22:15 BP 102 / 78; Pulse 72; Resp 18; Pulse Ox 100% on R/A; kj2 23:10 BP 155 / 62; Pulse 66; Resp 20; Pulse Ox 100% ; kj2 08/09 00:19 BP 149 / 73; Pulse 72; Resp 20; Pulse Ox 100% on R/A; kj2 01:32 BP 138 / 76; Pulse 69; Resp 18 S; Pulse Ox 100% on R/A; lg3 08/08 17:20 Body Mass Index 37.20 (95.25 kg, 160.02 cm) hb 08/08 17:20 Pain Scale: Adult hb ED Course: 08/08 17:02 Patient arrived in ED. cj3 17:23 Triage completed. hb 17:23 Arm band placed on. hb 17:27 Pawel Aguirre MD is Attending Physician. zahraa 19:13 CT Head Brain wo Cont In Process Unspecified. EDMS 20:16 Maria T Baird, MICHELLE is Primary Nurse. kj2 20:18 Patient has correct armband on for positive identification. Provided Education on: call kj2 light. 20:29 Radiology exam delayed due to lab results not completed at this time. (BUN/Creatinine) jc4 IV insertion attempt and/or patient not having appropriate IV at this time. 20:32 Darnell Fraga FNP-C is PHCP. dr5 21:55 Urinalysis w/ reflexes Sent. mm11 21:55 Basic Metabolic Panel Sent. mm11 21:55 CBC with Diff Sent. mm11 21:56 LFT's Sent. mm11 21:56 Magnesium Sent. mm11 21:56 NT PRO-BNP Sent. mm11 21:56 PT-INR Sent. mm11 21:56 Troponin HS Sent. mm11 21:56 Inserted saline lock: 22 gauge in right antecubital area, using aseptic technique. mm11 Blood collected. Flushed with 10 mL NS. 22:10 EKG done, by ED staff, reviewed by Darnell LEDEZMA. hw 23:05 Inserted saline lock: 20 gauge in left antecubital area, using aseptic technique. Blood kj2 collected. Flushed with 10 mL NS. 23:46 US Carotid Artery Bilateral In Process Unspecified. EDMS 23:50 CT Aorta for Dissection In Process Unspecified. EDMS 08/09 00:41 Report given to MICHELLE Ambrose. kj2 01:22 Troy Eldridge MD is Referral Physician. dr5 01:22 Brando Jordan MD is Referral Physician. dr5 01:32 No provider procedures requiring assistance completed. IV discontinued, intact, lg3 bleeding controlled, No redness/swelling at site. Pressure dressing applied. Administered Medications: 08/08 17:38 CANCELLED (per MD): magnesium sulfate1 grams IVPB once over 1 hrs hb 22:12 Drug: NS 0.9% IV 500 ml 500 ml IV at 125 ml/hr once Volume: 500 ml; Route: IV; Rate: kj2 125 ml/hr; Site: right antecubital; 08/09 01:33 Follow up: Response: No adverse reaction; IV Status: Completed infusion; IV Intake: lg3 500ml 08/08 22:12 Drug: Clopidogrel PO 75 mg PO once Route: PO; kj2 23:09 Follow up: Response: No adverse reaction kj2 22:13 Drug: NS 0.9% IV 500 ml IV at bolus once; to be given as a bolus over 30 minutes Route: kj2 IV; Rate: bolus; Site: right antecubital; 08/09 01:33 Follow up: Response: No adverse reaction; IV Status: Completed infusion; IV Intake: lg3 500ml 00:19 Drug: morphine IVP or IV 4 mg IVP once over 4 mins Route: IVP; Infused Over: 4 mins; kj2 Site: left antecubital; 00:42 Follow up: Response: No adverse reaction kj2 00:19 Drug: Ondansetron IVP 4 mg IVP once; over 2 minutes Route: IVP; Site: left antecubital; kj2 00:42 Follow up: Response: No adverse reaction kj2 Medication: 01:32 VIS not applicable for this client. lg3 Intake: 01:33 IV: 500ml; Total: 500ml. lg3 01:33 IV: 500ml; Total: 1000ml. lg3 Outcome: 01:23 Discharge ordered by . dr5 01:32 Discharged to home ambulatory, with family, lg3 01:32 Condition: stable 01:32 Discharge instructions given to patient, Instructed on discharge instructions, follow up and referral plans. medication usage, Demonstrated understanding of instructions, follow-up care, medications, Prescriptions given X 3, 01:33 Patient left the ED. lg3 Signatures: Dispatcher [employer] EDCA Pawel Aguirre MD MD cha Baxter, Heather RN RN hb Shreya Dumont RN RN lg3 Jeramie Rosario jc4 Maria T Baird RN RN kj2 Muna Rodriguez Darnell Fraga, FOOD TRUCK CATERER-C FOOD TRUCK CATERER-[facility]5 haim harris mm11 Mine Coronel cj3 Corrections: (The following items were deleted from the chart) 08/08 17:23 17:20 Chief complaint: Intermittent dizziness, nausea, and feeling shaky x 4 days hb hb
--- NOTE | 2024-08-09 01:23 | EDPHYS ---
Physician Documentation [facility] Name: Marya Ching Age: 68 yrs Sex: Female : 1955 Arrival Date: 08/08/2024 Time: 16:56 Bed 12 Private MD: ED Physician Pawel Aguirre HPI: 08/08 20:16 This 68 yrs old Female presents to ER via Ambulatory with complaints of zahraa Dizziness, Headache. 20:16 The patient presents with dizziness, generalized weakness, lightheadedness. Onset: The zahraa symptoms/episode began/occurred 4 day(s) ago. Context: occurred at home, occurred while the patient was exercising. Modifying factors: The symptoms are alleviated by nothing, the symptoms are aggravated by movement of head, standing up. Associated signs and symptoms: Pertinent positives: headache, palpitations. Severity of symptoms: At their worst the symptoms were moderate in the emergency department the symptoms are unchanged. Patient's baseline: Neuro: alert and fully oriented. The patient has experienced similar episodes in the past, several times. Historical: - Allergies: 17:23 Aspirin; hb 17:23 [place]; hb 17:23 Phenobarbital; hb - PMHx: 17:23 ascending aortic anuerysm; colon surgery; COPD; diverticulosis; hb - Immunization history:: Adult Immunizations up to date. - Infectious Disease History:: Denies. - Social history:: Smoking status: Patient denies any tobacco usage or history of. - Family history:: not pertinent. ROS: 20:17 Constitutional: Negative for fever, chills, and weight loss, Eyes: Negative for injury, zahraa pain, redness, and discharge, ENT: Negative for injury, pain, and discharge, Neck: Negative for injury, pain, and swelling, Cardiovascular: Negative for chest pain, palpitations, and edema, Respiratory: Negative for shortness of breath, cough, wheezing, and pleuritic chest pain, Abdomen/GI: Negative for abdominal pain, nausea, vomiting, diarrhea, and constipation, Back: Negative for injury and pain, : Negative for injury, bleeding, discharge, and swelling, MS/Extremity: Negative for injury and deformity, Skin: Negative for injury, rash, and discoloration, Psych: Negative for depression, anxiety, suicide ideation, homicidal ideation, and hallucinations, Allergy/Immunology: Negative for hives, rash, and allergies, Endocrine: Negative for neck swelling, polydipsia, polyuria, polyphagia, and marked weight changes, Hematologic/Lymphatic: Negative for swollen nodes, abnormal bleeding, and unusual bruising, 20:17 Neuro: Positive for dizziness, weakness, Exam: 20:18 Constitutional: This is a well developed, well nourished patient who is awake, alert, zahraa and in no acute distress. Head/Face: Normocephalic, atraumatic. Eyes: Pupils equal round and reactive to light, extra-ocular motions intact. Lids and lashes normal. Conjunctiva and sclera are non-icteric and not injected. Cornea within normal limits. Periorbital areas with no swelling, redness, or edema. ENT: Nares patent. No nasal discharge, no septal abnormalities noted. Tympanic membranes are normal and external auditory canals are clear. Oropharynx with no redness, swelling, or masses, exudates, or evidence of obstruction, uvula midline. Mucous membranes moist. Neck: Trachea midline, no thyromegaly or masses palpated, and no cervical lymphadenopathy. Supple, full range of motion without nuchal rigidity, or vertebral point tenderness. No Meningismus. Chest/axilla: Normal chest wall appearance and motion. Nontender with no deformity. No lesions are appreciated. Cardiovascular: Regular rate and rhythm with a normal S1 and S2. No gallops, murmurs, or rubs. Normal PMI, no JVD. No pulse deficits. Respiratory: Lungs have equal breath sounds bilaterally, clear to auscultation and percussion. No rales, rhonchi or wheezes noted. No increased work of breathing, no retractions or nasal flaring. Abdomen/GI: Soft, non-tender, with normal bowel sounds. No distension or tympany. No guarding or rebound. No evidence of tenderness throughout. Back: No spinal tenderness. No costovertebral tenderness. Full range of motion. Female : Normal external genitalia. Skin: Warm, dry with normal turgor. Normal color with no rashes, no lesions, and no evidence of cellulitis. MS/ Extremity: Pulses equal, no cyanosis. Neurovascular intact. Full, normal range of motion., bilateral aka Neuro: Awake and alert, GCS 15, oriented to person, place, time, and situation. Cranial nerves II-XII grossly intact. Motor strength 5/5 in all extremities. Sensory grossly intact. Cerebellar exam normal. Normal gait. Psych: Awake, alert, with orientation to person, place and time. Behavior, mood, and affect are within normal limits. 20:18 ECG was reviewed by the Attending Physician. 20:18 Musculoskeletal/extremity: DVT Exam: No signs of deep vein thrombosis. no pain, no swelling, no tenderness, negative Homans' sign noted on exam, no appreciated bluish discoloration, no erythema, no increased warmth, Vital Signs: 17:20 BP 101 / 78; Pulse 74; Resp 18; Temp 98.2(O); Pulse Ox 96% ; Weight 95.25 kg; Height 5 hb ft. 3 in. ; Pain 0/10; 21:15 BP 104 / 76; Pulse 72; Resp 18; Pulse Ox 100% on R/A; kj2 22:15 BP 102 / 78; Pulse 72; Resp 18; Pulse Ox 100% on R/A; kj2 23:10 BP 155 / 62; Pulse 66; Resp 20; Pulse Ox 100% ; kj2 08/09 00:19 BP 149 / 73; Pulse 72; Resp 20; Pulse Ox 100% on R/A; kj2 01:32 BP 138 / 76; Pulse 69; Resp 18 S; Pulse Ox 100% on R/A; lg3 08/08 17:20 Body Mass Index 37.20 (95.25 kg, 160.02 cm) hb 08/08 17:20 Pain Scale: Adult hb MDM: 08/08 17:27 Medical Screening Exam initiated zahraa 20:19 Differential diagnosis: cardiac arrhythmia, CVA, generalized weakness, hypovolemia, zahraa near-syncope, TIA, vertigo. Data reviewed: vital signs, nurses notes, lab test result(s), EKG, radiologic studies, plain films. Consideration of Admission/Observation Escalation of care including admission/observation considered. I considered the following discharge prescriptions or medication management in the emergency department Medications were administered in the Emergency Department. See MAR. Independent interpretation of the following test(s) in the Emergency Department EKG: See my EKG interpretation above. Test considered but Not performed: MRI: NO MRI BRAIN. Care significantly affected by the following chronic conditions: Chronic Obstructive Pulmonary Disease, Obesity, ASCENDING AORTIC ANEURYSM. Counseling: I had a detailed discussion with the patient and/or guardian regarding the historical points, exam findings, and any diagnostic results supporting the discharge/admit diagnosis, lab results, radiology results, the need for outpatient follow up, for definitive care, 20:32 Transition of care: Care assumed from Pawel Aguirre MD. ED course: Plan: EKG, CT Aorta dr5 for known aneurysm, labs including LFTs and Cardiac, and urinalysis. August d/c if all normal.. 08/09 01:30 ED course: Patient's lab and ultrasound and CT scans were discussed with patient. dr5 Patient will follow-up with Dr. Ellis this week. Patient is feeling much better. No acute findings noted. All questions answered. IV was pulled and patient was walked out by myself.. 08/08 17:29 Order name: Basic Metabolic Panel; Complete Time: 23:49 zahraa 08/08 17:29 Order name: CBC with Diff; Complete Time: 23:48 08/08 17:29 Order name: LFT's; Complete Time: 23:49 08/08 17:29 Order name: Magnesium; Complete Time: 23:49 08/08 17:29 Order name: NT PRO-BNP; Complete Time: 23:49 08/08 17:29 Order name: PT-INR; Complete Time: 23:48 08/08 17:29 Order name: Troponin HS; Complete Time: 23:49 08/08 17:29 Order name: TSH; Complete Time: 23:49 08/08 18:30 Order name: Urinalysis w/ reflexes; Complete Time: 23:45 08/08 18:30 Order name: CT Head Brain wo Cont; Complete Time: 20:35 08/08 20:16 Order name: CT Aorta for Dissection 08/08 20:16 Order name: US Carotid Artery Bilateral; Complete Time: 23:48 08/08 17:29 Order name: Cardiac monitoring; Complete Time: 22:13 08/08 17:29 Order name: EKG - Nurse/Tech; Complete Time: 22:10 08/08 17:29 Order name: IV Saline Lock; Complete Time: 21:55 08/08 17:29 Order name: Labs collected and sent; Complete Time: 21:55 08/08 17:29 Order name: O2 Per Protocol; Complete Time: 22:13 08/08 17:29 Order name: O2 Sat Monitoring; Complete Time: 22:13 [facility] EC/11 22:06 Rate is 69 beats/min. Rhythm is regular. QRS Upper Tract is Normal. WA interval is normal at dr5 142 msec. QRS interval is normal at 130 msec. QT interval is normal at 452 msec. Administered Medications: 17:38 CANCELLED (per MD): magnesium sulfate1 grams IVPB once over 1 hrs hb 22:12 Drug: NS 0.9% IV 500 ml 500 ml IV at 125 ml/hr once Volume: 500 ml; Route: IV; Rate: kj2 125 ml/hr; Site: right antecubital; 08/09 01:33 Follow up: Response: No adverse reaction; IV Status: Completed infusion; IV Intake: lg3 500ml 08/08 22:12 Drug: Clopidogrel PO 75 mg PO once Route: PO; kj2 23:09 Follow up: Response: No adverse reaction kj2 22:13 Drug: NS 0.9% IV 500 ml IV at bolus once; to be given as a bolus over 30 minutes Route: kj2 IV; Rate: bolus; Site: right antecubital; 08/09 01:33 Follow up: Response: No adverse reaction; IV Status: Completed infusion; IV Intake: lg3 500ml 00:19 Drug: morphine IVP or IV 4 mg IVP once over 4 mins Route: IVP; Infused Over: 4 mins; kj2 Site: left antecubital; 00:42 Follow up: Response: No adverse reaction kj2 00:19 Drug: Ondansetron IVP 4 mg IVP once; over 2 minutes Route: IVP; Site: left antecubital; kj2 00:42 Follow up: Response: No adverse reaction kj2 Disposition Summary: 08/09/24 01:23 Discharge Ordered Notes: Location: Home dr5 Problem: new dr5 Symptoms: have improved dr5 Condition: Stable dr5 Diagnosis - Dizziness and giddiness dr5 - Headache dr5 - COPD/ Chronic obstructive pulmonary disease, unspecified dr5 - Obesity, unspecified dr5 Followup: zahraa - With: Private Physician - When: 2 - 3 days - Reason: Recheck today's complaints, Continuance of care, Re-evaluation by your physician Followup: zahraa - With: Troy Eldridge MD - When: 2 - 3 days - Reason: Recheck today's complaints, Re-evaluation by your physician Followup: zahraa - With: Brando Jordan MD - When: 2 - 3 days - Reason: Recheck today's complaints, Re-evaluation by your physician Discharge Instructions: - Discharge Summary Sheet zahraa - Benign Positional Vertigo zahraa - Chronic Obstructive Pulmonary Disease zahraa - Dizziness zahraa - General Headache Without Cause zahraa - Obesity, Adult zahraa - General Headache Without Cause, Bomr-ia-Anit zahraa Forms: - Medication Reconciliation Form dr5 - Antibiotic Education dr5 - Prescription Opioid Use dr5 - Patient Portal Instructions dr5 - Leadership Thank You Letter dr5 Prescriptions: - Meclizine 25 mg Oral Tablet - take 1 tablet ORAL route every 8 hours As needed; 30 tablet; Refills: 0, zahraa Product Selection Permitted - Plavix 75 mg Oral Tablet - take 1 tablet ORAL route once daily; 20 tablet; Refills: 0, Product Selection zahraa Permitted - Folic Acid 1 mg Oral Tablet - take 1 tablet ORAL route once daily; 30 tablet; Refills: 0, Product Selection zahraa Permitted Signatures: Dispatcher [employer] EDMS Pawel Aguirre MD MD cha Baxter, Heather, RN RN Maria T Baird RN RN kj2 Darnell Fraga, HEAD OF BIOLOGY-C HEAD OF BIOLOGY-Cdr5 Shreya Dumont RN lg3 Corrections: (The following items were deleted from the chart) 08/08 17:29 17:29 BASIC METABOLIC PANEL+C.LAB.BRZ ordered. EDMS EDMS 17:29 17:29 CBC+H.LAB.BRZ ordered. EDMS EDMS 17:29 17:29 HEPATIC FUNCTION+C.LAB.BRZ ordered. EDMS EDMS 17:29 17:29 MAGNESIUM+C.LAB.BRZ ordered. EDMS EDMS 17:29 17:29 PROBNP+C.LAB.BRZ ordered. EDMS EDMS 17:29 17:29 PROTIME (+INR)+COAG.LAB.BRZ ordered. EDMS EDMS 17:29 17:29 Troponin High Sensitivity+C.LAB.BRZ ordered. EDMS EDMS 17:29 17:29 THYROID STIMULAT HORMONE+C.LAB.BRZ ordered. EDMS EDMS 17:29 17:29 Chest Single View+RAD.RAD.BRZ ordered. EDWY EDMS 17:38 17:29 Magnesium Sulfate IVPB 1 grams IVPB once over 1 hrs ordered. [facility] hb 17:38 17:37 Magnesium Sulfate IVPB 1 grams IVPB once over 1 hrs ordered. hb hb 18:30 18:30 Urinalysis+U.LAB.BRZ ordered. EDMS EDMS
[2024-08-09 02:14] VITALS: TEMP 98.2
[2024-08-09 02:15] VITALS: O2SAT 100
[2024-08-09 02:20] VITALS: BP 138/76
== END 2024-08-09 01:33 | disposition home or self-care (01) ==
LOC: ER 16:56
DX: R42 Dizziness and giddiness (principal); R51.9 Headache, unspecified; J44.9 Chronic obstructive pulmonary disease, unspecified; E66.9 Obesity, unspecified; R53.1 Weakness
CPT/HCPCS: 96361; 85025; 81001; 80048; 36415; 83735; 85610; 80076; 84443; 84484; 83880; 70450; 71275; 74175; 93880; 96375; 96374; 99284; Q9967; J2405; J7040; 93005